=== PATIENT | male | born 1945 | race Caucasian/White ===

== ENCOUNTER 2016-11-30 16:17 | Outpatient (CLI) | payer MEDICARE | END 2016-11-30 16:18 | disposition home or self-care (01) | DX: I83.10 Varicose veins of unspecified lower extremity with inflammation (principal) ==

== ENCOUNTER 2016-12-27 13:30 | Outpatient (CLI) | payer MEDICARE | END 2016-12-27 13:31 | disposition home or self-care (01) | DX: M50.31 Other cervical disc degeneration, high cervical region (principal); M47.812 Spondylosis without myelopathy or radiculopathy, cervical region; M41.24 Other idiopathic scoliosis, thoracic region ==

== ENCOUNTER 2017-02-15 10:10 | Outpatient (CLI) | payer MEDICARE | END 2017-02-15 10:11 | disposition home or self-care (01) | DX: E78.2 Mixed hyperlipidemia (principal) ==

== ENCOUNTER 2017-05-02 03:39 | Emergency (ER) | payer MEDICARE ==
--- NOTE | 2017-05-02 03:42 | ED Physician Documentation ---
PD HPI DYSPNEA - Stated complaint Stated Complaint: SHORTNESS OF BREATH - History obtained from History obtained from: Patient - History of Present Illness Timing - onset: How many minutes ago (45) Timing - onset during: Sleep Timing - details: Abrupt onset Pain level max: 0 Pain level now: 0 Improved by: Other (no apparent ameliorating factors) Worsened by: Other (no exacerbating factors) Associated symptoms: No: Fever, Cough, Chest pain / discomfort, Palpitations, Diaphoresis, Bilateral edema, Unilateral edema Similar symptoms before: Diagnosis (h/o pneumothorax (spontaneous, recurrent until pleurodesis 40 years ago)) Recently seen: Not recently seen Review of Systems Constitutional: denies: Fever, Chills, Sweats Cardiac: reports: Reviewed and negative Respiratory: reports: Dyspnea. denies: Cough, Wheezing GI: reports: Reviewed and negative Musculoskeletal: denies: Extremity swelling PD PAST MEDICAL HISTORY - Past Medical History Past Medical History: Yes Cardiovascular: Hypertension - Present Medications Home Medications: Ambulatory Orders Medication Instructions Recorded Confirmed Losartan [Cozaar] 25 mg PO BID 05/02/17 05/02/17 - Allergies Allergies/Adverse Reactions: Allergies Allergy/AdvReac Type Severity Reaction Status Date / Time Penicillins Allergy Unknown Verified 05/02/17 03:48 - Living Situation Living Situation: reports: With spouse/s.o. Living Arrangement: reports: At home - Social History Does the pt smoke?: No PD ED PE NORMAL - Vitals Vital signs reviewed: Yes - General General: Alert and oriented X 3, No acute distress, Well developed/nourished - Cardiac Cardiac: RRR, No murmur - Respiratory Respiratory: No respiratory distress, Clear bilaterally - Abdomen Abdomen: Soft, Non tender - Derm Derm: Normal color, Warm and dry, No rash - Extremities Extremities: No edema Results - Vitals Vitals: Vital Signs - 24 hr 05/02/17 05/02/17 05/02/17 03:42 04:39 05:03 Temperature 36.2 C L Heart Rate 51 L 54 L 49 L Respiratory 19 17 9 L Rate Blood Pressure 176/82 H 163/83 H 133/78 H O2 Saturation 100 96 96 Oxygen O2 Source Room air - EKG (time done) No standard instances Rate: Rate (enter#) (45) Rhythm: Sinus bradycardia [place]: LAD Intervals: Normal MI QRS: LVH Ischemia: Normal ST segments, T wave inversion (III, aVF) - Labs Labs: Laboratory Tests 05/02/17 05/02/17 05/02/17 04:30 04:30 04:30 WBC 5.0 RBC 4.41 L Hgb 14.1 Hct 40.9 L MCV 92.7 MCH 32.0 H MCHC 34.5 RDW 12.8 Plt Count 186 MPV 8.3 Neut # 3.0 Lymph # 1.5 Caroline # 0.4 Eos # 0.1 Baso # 0.0 Absolute Nucleated RBC 0.00 Nucleated RBCs 0.1 D-Dimer Sodium 139 Potassium 3.8 Chloride 107 Carbon Dioxide 25 Anion Gap 7.0 BUN 30 H Creatinine 1.0 Estimated GFR (MDRD) 74 L Glucose 101 H Calcium 8.8 Troponin I < 0.04 05/02/17 04:30 WBC RBC Hgb Hct MCV MCH MCHC RDW Plt Count MPV Neut # Lymph # Caroline # Eos # Baso # Absolute Nucleated RBC Nucleated RBCs D-Dimer 114.0 L Sodium Potassium Chloride Carbon Dioxide Anion Gap BUN Creatinine Estimated GFR (MDRD) Glucose Calcium Troponin I - Rads (name of study) chest xray Radiology: Prelim report reviewed, See rad report PD MEDICAL DECISION MAKING - ED course Complexity details: reviewed results, re-evaluated patient, considered differential, d/w patient ED course: On reevaluation, after tests resulted, patient reports his symptoms have resolved Departure - Departure Disposition: 01 Home, Self Care Clinical Impression: Dyspnea Qualifiers: Dyspnea type: unspecified Qualified Code(s): R06.00 - Dyspnea, unspecified Condition: Good Instructions: ED Dyspnea Shortness of Breath Follow-Up: Peter Rodriguez MD [Primary Care Provider] - Discharge Date/Time: 05/02/17 05:25
--- NOTE | 2017-05-02 04:16 | XRAY Preliminary Report ---
Exam: XR Chest 2 View PA/LAT IMPRESSION: 1. No acute abnormality seen in the chest. [facility] SITE ID: [id number]
--- NOTE | 2017-05-02 04:18 | XRAY Report ---
EXAM: CHEST RADIOGRAPHY EXAM DATE: 05/02/2017 03:55 AM. CLINICAL HISTORY: Dyspnea. COMPARISON: 07/06/2010. TECHNIQUE: 2 views. FINDINGS: Lungs/Pleura: No alveolar consolidation or pleural effusion. No pneumothorax. Mediastinum: Heart size is normal. Aortic atherosclerosis. Other: Mild scoliosis. IMPRESSION: 1. No acute abnormality seen in the chest. [facility] Referring Provider Line: [phone] SITE ID: [id number]
[2017-05-02 04:44] LABS: BASOPHILS % (AUTO) 0.8 %; EOSINOPHILS # (AUTO) 0.1 10^3/uL (0.0-0.7); EOSINOPHILS % (AUTO) 1.2 %; HCT - HEMATOCRIT 40.9 % (42.0-52.0); HGB - HEMOGLOBIN 14.1 g/dL (14.0-18.0); LYMPHOCYTES # (AUTO) 1.5 10^3/uL (1.5-3.5); MEAN CORPUSCULAR HGB CONC 34.5 g/dL (32.0-36.0); MEAN CORPUSCULAR VOLUME 92.7 fL (80.0-94.0); MEAN PLATELET VOLUME 8.3 fL (7.4-11.4); MONOCYTES # (AUTO) 0.4 10^3/uL (0.0-1.0); MONOCYTES % (AUTO) 8.7 %; NEUTROPHILS % (AUTO) 59.3 %; NUCLEATED RED BLOOD CELLS AUTO 0.1 /100WBC; RED BLOOD COUNT 4.41 10^6/uL (4.70-6.10); RED CELL DISTRIBUTION WIDTH 12.8 % (12.0-15.0)
[2017-05-02 04:47] LABS: CALCIUM 8.8 mg/dL (8.5-10.3); POTASSIUM 3.8 mmol/L (3.5-5.0)
[2017-05-02 05:04] VITALS: BP 133/78
== END 2017-05-02 05:25 | disposition home or self-care (01) ==
LOC: ED 03:39
DX: R06.02 Shortness of breath (principal); I10 Essential (primary) hypertension
CPT/HCPCS: 36415; 71020; 80048; 84484; 85025; 85379; 93005; 99283

== ENCOUNTER 2017-07-09 09:32 | Outpatient (CLI) | payer MEDICARE ==
[2017-07-09 18:52] LABS: CHOL/HDL RATIO 3.9 (<5.0); CHOLESTEROL 196 mg/dL; HDL CHOLESTEROL 50 mg/dL; LDL/HDL RATIO 2.1 (<3.6); TRIGLYCERIDES 215 mg/dL; VLDL CHOLESTEROL 43 mg/dL
== END 2017-07-09 09:33 | disposition home or self-care (01) ==
LOC: LAB.R 09:32
PROVIDERS: ATTEND Internal Medicine
DX: Z12.5 Encounter for screening for malignant neoplasm of prostate (principal); E78.5 Hyperlipidemia, unspecified
CPT/HCPCS: 80061; G0103; 84153

== ENCOUNTER 2018-01-23 08:00 | Outpatient (CLI) | payer MEDICARE ==
[2018-01-23 14:09] LABS: CHOL/HDL RATIO 3.4 (<5.0); CHOLESTEROL 171 mg/dL; HDL CHOLESTEROL 50 mg/dL; LDL CHOLESTEROL,CALCULATED 94 mg/dL; LDL/HDL RATIO 1.9 (<3.6); VLDL CHOLESTEROL 27 mg/dL
== END 2018-01-23 23:59 ==
LOC: LAB.R 08:00
PROVIDERS: ATTEND Internal Medicine
DX: E78.5 Hyperlipidemia, unspecified (principal)
CPT/HCPCS: 80061; 83721

== ENCOUNTER 2018-05-02 10:11 | Outpatient (CLI) | payer MEDICARE ==
--- NOTE | 2018-05-02 10:46 | XRAY Report ---
Procedure Date: 05/02/2018 Accession Number: [id number] / [id number] Procedure: XR - Lumbar Spine 2 View CPT Code: FULL RESULT: EXAM: Lumbar Spine 2 View, Sacrum/Coccyx DATE: 05/02/2018 10:30 AM CLINICAL HISTORY: LUMBAR RADICULOPATHY,RIGHT COMPARISON: None. TECHNIQUE: 2 views of the lumbar spine as well as AP and lateral views of the sacrum and coccyx. FINDINGS: Sacrum/coccyx: The sacroiliac joints are congruent. There is no fracture of the coccyx and no aggressive osseous lesion. Mesh material is seen overlying the pelvis, hernia repair. Visualized soft tissues are unremarkable. Alignment: Normal. No spondylolisthesis or scoliosis. Bones: Six [id number] lumbar vertebral bodies are present. No fractures or bone lesions. Disks: There is loss of disc space height predominantly at L4-5 and L5 6. Facets: Facet arthropathy at L5 and L6. Sacroiliac Joints: Unremarkable. Soft Tissues: Normal. The visualized bowel gas pattern is normal. IMPRESSION: 6 lumbar type vertebral bodies with degenerative changes of the lower lumbar spine as described. [facility]
--- NOTE | 2018-05-02 10:46 | XRAY Report ---
Procedure Date: 05/02/2018 Accession Number: [id number] / [id number] Procedure: XR - Sacrum/Coccyx CPT Code: FULL RESULT: EXAM: Lumbar Spine 2 View, Sacrum/Coccyx DATE: 05/02/2018 10:30 AM CLINICAL HISTORY: LUMBAR RADICULOPATHY,RIGHT COMPARISON: None. TECHNIQUE: 2 views of the lumbar spine as well as AP and lateral views of the sacrum and coccyx. FINDINGS: Sacrum/coccyx: The sacroiliac joints are congruent. There is no fracture of the coccyx and no aggressive osseous lesion. Mesh material is seen overlying the pelvis, hernia repair. Visualized soft tissues are unremarkable. Alignment: Normal. No spondylolisthesis or scoliosis. Bones: Six [id number] lumbar vertebral bodies are present. No fractures or bone lesions. Disks: There is loss of disc space height predominantly at L4-5 and L5 6. Facets: Facet arthropathy at L5 and L6. Sacroiliac Joints: Unremarkable. Soft Tissues: Normal. The visualized bowel gas pattern is normal. IMPRESSION: 6 lumbar type vertebral bodies with degenerative changes of the lower lumbar spine as described. [facility]
== END 2018-05-02 10:12 | disposition home or self-care (01) ==
LOC: DI 10:11
PROVIDERS: ATTEND Physician Assistant Medical
DX: M51.36 Other intervertebral disc degeneration, lumbar region (principal); M47.896 Other spondylosis, lumbar region
CPT/HCPCS: 72100; 72220

== ENCOUNTER 2018-06-14 11:20 | Outpatient (CLI) | payer MEDICARE | END 2018-06-14 11:21 | disposition home or self-care (01) | LOC: DI 11:20 | PROVIDERS: ATTEND Physician Assistant Medical | DX: R94.31 Abnormal electrocardiogram [ECG] [EKG] (principal); R55 Syncope and collapse | CPT/HCPCS: 93306 ==

== ENCOUNTER 2018-07-28 08:00 | Outpatient (CLI) | payer MEDICARE ==
[2018-07-28 14:14] LABS: BASOPHILS % (AUTO) 0.8 %; LYMPHOCYTES # (AUTO) 1.2 10^3/uL (1.5-3.5); MEAN CORPUSCULAR HEMOGLOBIN 32.2 pg (27.0-31.0); MEAN CORPUSCULAR HGB CONC 34.8 g/dL (32.0-36.0); MEAN CORPUSCULAR VOLUME 92.4 fL (80.0-94.0); MONOCYTES # (AUTO) 0.3 10^3/uL (0.0-1.0); MONOCYTES % (AUTO) 8.2 %; NEUTROPHILS # (AUTO) 2.3 10^3/uL (1.5-6.6); PLT - PLATELET COUNT 196 10^3/uL (130-450); RED BLOOD COUNT 4.67 10^6/uL (4.70-6.10); RED CELL DISTRIBUTION WIDTH 13.2 % (12.0-15.0); WHITE BLOOD COUNT 3.8 x10^3/uL (4.8-10.8)
[2018-07-28 14:33] LABS: ALBUMIN/GLOBULIN RATIO 1.4 (1.0-2.2); ALKALINE PHOSPHATASE 57 IU/L (42-121); ALT ALANINE AMINOTRANSFERASE 22 IU/L (10-60); AST ASPARTATE AMINOTRANSFERASE 28 IU/L (10-42); BILIRUBIN,TOTAL 1.2 mg/dL (0.2-1.0); BUN - BLOOD UREA NITROGEN 18 mg/dL (6-20); CARBON DIOXIDE - CO2 28 mmol/L (21-32); CHLORIDE 104 mmol/L (101-111); CHOL/HDL RATIO 3.1 (<5.0); CHOLESTEROL 195 mg/dL; GFR - MDRD 73 (>89); GLUCOSE 89 mg/dL (70-100); HDL CHOLESTEROL 62 mg/dL; LDL CHOLESTEROL,CALCULATED 113 mg/dL; LDL/HDL RATIO 1.8 (<3.6); SODIUM 139 mmol/L (135-145); TOTAL PROTEIN 6.8 g/dL (6.7-8.2); VLDL CHOLESTEROL 20 mg/dL
== END 2018-07-28 08:01 | disposition home or self-care (01) ==
LOC: LAB.R 08:00
PROVIDERS: ATTEND Internal Medicine
DX: E78.5 Hyperlipidemia, unspecified (principal); I10 Essential (primary) hypertension; Z79.899 Other long term (current) drug therapy; Z12.5 Encounter for screening for malignant neoplasm of prostate
CPT/HCPCS: 80053; 80061; 85025; G0103; 83721; 84153

== ENCOUNTER 2019-04-03 10:06 | Outpatient (CLI) | payer MEDICARE ==
--- NOTE | 2019-04-03 17:03 | MRI Report ---
Reason: BURSITIS OF RIGHT SHOULDER Procedure Date: 04/03/2019 Accession Number: [id number] / [id number] Procedure: MRI - Shoulder RT W/O CPT Code: FULL RESULT: EXAM: RIGHT SHOULDER MRI WITHOUT CONTRAST EXAM DATE: 04/03/2019 11:07 AM. CLINICAL HISTORY: Bursitis of right shoulder. COMPARISON: None. TECHNIQUE: Multiplanar, multisequence T1-weighted and fluid-sensitive sequences of the shoulder without contrast. Other: None. FINDINGS: Acromioclavicular Region: The acromion is type II. Moderate osteoarthritis acromioclavicular joint. Cortical erosion and subcortical cystic changes distal clavicle and acromion at the AC joint. Small joint fluid. Superior AC joint capsular hypertrophy and spurring 7 mm. Inferior distal clavicle 3 mm spurring. Negative for marrow edema AC joint. The coracoacromial and coracoclavicular ligaments are intact. Small fluid collection subacromial subdeltoid bursa. Glenohumeral Region: No subluxation. No effusion or loose bodies. The articular cartilage is unremarkable. The glenohumeral ligaments and joint capsule are unremarkable. Bone Marrow: No fracture, marrow edema or bone lesions. Labrum: Probable superior labrum tear or SLAP lesion. Altered morphology anterior labrum with probable tear (image 15 series 401). Musculature/Rotator Cuff: At the 12 o'clock position humerus head is a bursal surface supraspinatus partial tear 50% thickness 1.6 cm in AP dimension and 1.6 cm in transverse dimension (image 12 series 701 and image 10 series 501). Complete or near complete partial tear distal anterior supraspinatus tendon 1.5 cm in AP dimension and 9 mm in transverse dimension. Negative for fluid signal subscapularis tendon tear. Negative for fluid signal infraspinatus tendon tear. Intermediate signal undersurface distal infraspinatus tendon 8 mm consistent with focal tendinosis. Biceps Tendon: Proximal intra-articular biceps tendinosis with enlargement and intermediate signal. Probable biceps zbigniew lesion. Attenuation biceps tendon proximal bicipital groove. Other: The subcutaneous tissues are unremarkable. IMPRESSION: 1. Near complete and/or complete tear distal anterior supraspinatus tendon 1.5 cm in AP dimension and 9 mm in transverse dimension. 2. Partial bursal surface tear 50% proximal supraspinatus tendon 12 o'clock position humerus head 1.6 cm in transverse dimension and 1.6 cm in AP dimension. 3. Small fluid collection subacromial subdeltoid bursa. 4. Moderate osteoarthritis acromioclavicular joint. 5. Probable superior and anterior glenoid labrum tear. 6. Proximal intra-articular biceps tendinosis. [facility]
== END 2019-04-03 10:07 | disposition home or self-care (01) ==
LOC: DI 10:06
PROVIDERS: ATTEND Orthopaedic Surgery Sports Medicine
DX: M75.101 Unspecified rotator cuff tear or rupture of right shoulder, not specified as traumatic (principal); M19.011 Primary osteoarthritis, right shoulder; M25.411 Effusion, right shoulder; M67.921 Unspecified disorder of synovium and tendon, right upper arm

== ENCOUNTER 2019-07-14 11:54 | Outpatient (CLI) | payer MEDICARE ==
--- NOTE | 2019-07-14 16:02 | XRAY Report ---
Reason: NON TRAUMATIC PARTIAL LEFT ROTATOR CUFF TEAR Procedure Date: 07/14/2019 Accession Number: [id number] / [id number] Procedure: XR - Shoulder 3 View LT CPT Code: FULL RESULT: EXAM: LEFT SHOULDER RADIOGRAPHY EXAM DATE: 07/14/2019 12:10 PM. CLINICAL HISTORY: Nontraumatic partial left rotator cuff tear. COMPARISON: MRI SHOULDER RT W/O 04/03/2019. TECHNIQUE: 3 views. FINDINGS: Bones: No acute abnormality. No fracture or dislocation. Severe left AC joint arthropathy with superior subluxation of the acromion. The glenohumeral joint is unremarkable. Joints: As above. Soft tissues: The visualized hemithorax is unremarkable. No soft tissue swelling. No soft tissue calcifications. IMPRESSION: 1. No acute abnormality. 2. Severe left AC joint arthropathy as described above. 3. Otherwise negative examination. No evidence of soft tissue calcification. [facility]
== END 2019-07-14 11:55 | disposition home or self-care (01) ==
LOC: DI 11:54
PROVIDERS: ATTEND Family Medicine
DX: M75.112 Incomplete rotator cuff tear or rupture of left shoulder, not specified as traumatic (principal); M19.012 Primary osteoarthritis, left shoulder

== ENCOUNTER 2019-07-29 10:27 | Outpatient (CLI) | payer MEDICARE ==
[2019-07-29] MEDS ORDERED: IOTHALAMATE MEGLUMINE 50 ML VIAL ONE (10:34)
[2019-07-29] MEDS ORDERED: BUFFERED LIDOCAINE 10 ML SYRINGE ONE (10:35)
[2019-07-29] MEDS ORDERED: GADOBUTROL 10 MMOL/10 ML VIAL ONE (10:35)
[2019-07-29] MEDS ORDERED: BUFFERED LIDOCAINE 10 ML SYRINGE IU ONE (11:35)
[2019-07-29] MEDS ORDERED: GADOBUTROL 10 MMOL/10 ML VIAL IVP ONE (11:35)
[2019-07-29] MEDS ORDERED: IOTHALAMATE MEGLUMINE 50 ML VIAL IVP ONE (11:35)
--- NOTE | 2019-07-30 11:55 | MRI Report ---
Reason: PARTIAL LEFT ROTATOR CUFF TEAR Procedure Date: 07/29/2019 Accession Number: [id number] / [id number] Procedure: MRI - Arthrogram Shoulder LT CPT Code: FULL RESULT: EXAM: LEFT SHOULDER MRI ARTHROGRAM WITH CONTRAST EXAM DATE: 07/29/2019 12:00 PM. CLINICAL HISTORY: Partial left rotator cuff tear. COMPARISON: Radiographs 07/14/2019. TECHNIQUE: Multiplanar, multisequence T1-weighted and fluid-sensitive sequences of the shoulder after an arthrographic injection of dilute gadolinium, dictated under a separate exam. Other: None. FINDINGS: Acromioclavicular Region: The acromion is type II with subtle anterior downsloping. Moderate degenerative change at the acromioclavicular joint with inferiorly-directed osteophytes and a large joint effusion. Subtle contrast may extend into the joint. The coracoacromial and coracoclavicular ligaments are intact. Small amount of contrast in the subacromial/subdeltoid bursa. Glenohumeral Region: No subluxation. No loose bodies. Deep partial-thickness cartilage loss at the central articular surfaces. The glenohumeral ligaments and joint capsule are unremarkable. Bone Marrow: No fracture, marrow edema or bone lesions. Labrum: Undersurface tear at the posterior-superior aspect. Deep partial to full-thickness component deep to the biceps anchor. Biceps Tendon: Mild tendinopathy with medial subluxation from the superior aspect of the bicipital groove. Musculature/Rotator Cuff: Mild supraspinatus tendinopathy. Focal full-thickness partial-width tear at the anterior insertion. Mild infraspinatus tendinopathy. Subtle shallow intrasubstance tear at the posterior insertion. Teres minor tendon intact. Moderate subscapularis tendinopathy with a small deep partial-thickness undersurface tear at the superior insertion. No edema or fatty atrophy. Other: The subcutaneous tissues are unremarkable. IMPRESSION: 1. Mild supraspinatus tendinopathy with a focal full-thickness partial-width tear at the anterior insertion. 2. Mild infraspinatus tendinopathy with a subtle shallow intrasubstance tear at the posterior fibers. 3. Moderate subscapularis tendinopathy with a small deep undersurface tear at the superior insertion. 4. Mild biceps tendinopathy with medial subluxation from the groove. 5. Undersurface tear at the posterior-superior labrum. Deep partial to full-thickness extension deep to the biceps anchor. 6. Moderate acromioclavicular degenerative change with joint effusion. Possible subtle contrast in the joint fluid, suggestive of inferior capsular disruption. 7. Subtle anterior downsloping of the acromion may contribute to symptoms of impingement. [facility]
--- NOTE | 2019-07-31 12:02 | XRAY Report ---
Reason: PARTIAL LEFT ROTATOR CUFF TEAR Procedure Date: 07/29/2019 Accession Number: [id number] / [id number] Procedure: FL - Arthrogram Needle Placement CPT Code: FULL RESULT: EXAM: LEFT SHOULDER ARTHROGRAPHIC INJECTION WITH FLUOROSCOPIC GUIDANCE EXAM DATE: 07/29/2019 11:29 AM. CLINICAL HISTORY: Partial left rotator cuff tear. COMPARISON: ARTHROGRAM SHOULDER LT 07/29/2019 10:56 AM. TECHNIQUE: The risks, benefits, and alternatives of the procedure were discussed with the patient. All questions were answered. Written and verbal consent were obtained. The glenohumeral joint was marked under fluoroscopy and prepped and draped in a sterile manner. Local anesthesia was performed with 1% lidocaine. A 22-gauge needle was then inserted into the glenohumeral joint. 10 mL of a solution containing 25% 1% lidocaine, 25% iodinated contrast, and a 1:200 dilution of gadolinium contrast in sterile saline was then injected. The needle was removed without immediate complication. Other: None. Fluoroscopy Time: 2 seconds. Number of Images: 6. FINDINGS: Bones and joints: No fracture or subluxation. Injection: Fluoroscopic images demonstrate needle placement and contrast in the glenohumeral joint. No contrast extravasation outside of the glenohumeral joint. IMPRESSION: Successful fluoroscopically guided arthrographic injection of the shoulder. [facility]
== END 2019-07-29 10:28 | disposition home or self-care (01) ==
LOC: DI 10:27
PROVIDERS: ATTEND Family Medicine
DX: M75.102 Unspecified rotator cuff tear or rupture of left shoulder, not specified as traumatic (principal); M67.814 Other specified disorders of tendon, left shoulder; S43.492A Other sprain of left shoulder joint, initial encounter; M19.012 Primary osteoarthritis, left shoulder; M25.412 Effusion, left shoulder
CPT/HCPCS: 23350; 73222; 77002; A9585; Q9961

== ENCOUNTER 2019-08-14 08:21 | Outpatient (CLI) | payer MEDICARE ==
[2019-08-14 08:43] LABS: BASOPHILS # (AUTO) 0.1 10^3/uL (0.0-0.1); EOSINOPHILS # (AUTO) 0.1 10^3/uL (0.0-0.7); EOSINOPHILS % (AUTO) 1.8 %; HGB - HEMOGLOBIN 14.5 g/dL (14.0-18.0); LYMPHOCYTES % (AUTO) 39.6 %; MEAN CORPUSCULAR HEMOGLOBIN 32.1 pg (27.0-31.0); MEAN CORPUSCULAR HGB CONC 34.5 g/dL (32.0-36.0); MEAN CORPUSCULAR VOLUME 92.9 fL (80.0-94.0); MEAN PLATELET VOLUME 9.6 fL (7.4-11.4); MONOCYTES # (AUTO) 0.4 10^3/uL (0.0-1.0); MONOCYTES % (AUTO) 8.2 %; NEUTROPHILS # (AUTO) 2.5 10^3/uL (1.5-6.6); NEUTROPHILS % (AUTO) 49.2 %; PLT - PLATELET COUNT 189 10^3/uL (130-450); RED BLOOD COUNT 4.52 10^6/uL (4.70-6.10); RED CELL DISTRIBUTION WIDTH 12.6 % (12.0-15.0)
[2019-08-14 09:10] LABS: ALBUMIN 4.1 g/dL (3.2-5.5); ALBUMIN/GLOBULIN RATIO 1.7 (1.0-2.2); ALKALINE PHOSPHATASE 50 IU/L (42-121); ALT ALANINE AMINOTRANSFERASE 20 IU/L (10-60); AST ASPARTATE AMINOTRANSFERASE 24 IU/L (10-42); BILIRUBIN,TOTAL 1.3 mg/dL (0.2-1.0); BUN - BLOOD UREA NITROGEN 25 mg/dL (6-20); CALCIUM 9.4 mg/dL (8.5-10.3); CARBON DIOXIDE - CO2 28 mmol/L (21-32); CHLORIDE 108 mmol/L (101-111); CHOL/HDL RATIO 3.1 (<5.0); CHOLESTEROL 185 mg/dL; CREATININE 1.1 mg/dL (0.6-1.2); GFR - MDRD 66 (>89); GLUCOSE 99 mg/dL (70-100); HDL CHOLESTEROL 59 mg/dL; LDL CHOLESTEROL,CALCULATED 100 mg/dL; LDL/HDL RATIO 1.7 (<3.6); SODIUM 142 mmol/L (135-145); TOTAL PROTEIN 6.5 g/dL (6.7-8.2); VLDL CHOLESTEROL 26 mg/dL
[2019-08-14 10:21] LABS: FREE T4 (FREE THYROXINE) 0.85 ng/dL (0.58-1.64)
== END 2019-08-14 08:22 | disposition home or self-care (01) ==
LOC: LAB 08:21
PROVIDERS: ATTEND Family Medicine
DX: M54.16 Radiculopathy, lumbar region (principal); M17.9 Osteoarthritis of knee, unspecified; E78.5 Hyperlipidemia, unspecified; I10 Essential (primary) hypertension
CPT/HCPCS: 36415; 80053; 80061; 83721; 84439; 84443; 85025

== ENCOUNTER 2019-10-20 17:29 | Outpatient (CLI) | payer MEDICARE ==
[2019-10-20 17:49] LABS: BASOPHILS % (AUTO) 0.6 %; EOSINOPHILS % (AUTO) 0.5 %; HGB - HEMOGLOBIN 14.6 g/dL (14.0-18.0); LYMPHOCYTES # (AUTO) 1.7 10^3/uL (1.5-3.5); LYMPHOCYTES % (AUTO) 26.3 %; MEAN CORPUSCULAR HEMOGLOBIN 32.5 pg (27.0-31.0); MEAN CORPUSCULAR HGB CONC 34.8 g/dL (32.0-36.0); MEAN CORPUSCULAR VOLUME 93.5 fL (80.0-94.0); MEAN PLATELET VOLUME 9.7 fL (7.4-11.4); MONOCYTES # (AUTO) 0.5 10^3/uL (0.0-1.0); MONOCYTES % (AUTO) 7.8 %; NEUTROPHILS # (AUTO) 4.1 10^3/uL (1.5-6.6); NEUTROPHILS % (AUTO) 64.6 %; PLT - PLATELET COUNT 221 10^3/uL (130-450); RED BLOOD COUNT 4.49 10^6/uL (4.70-6.10); RED CELL DISTRIBUTION WIDTH 12.5 % (12.0-15.0); WHITE BLOOD COUNT 6.4 x10^3/uL (4.8-10.8)
[2019-10-20 17:54] LABS: CALCIUM 9.3 mg/dL (8.5-10.3); CREATININE 1.6 mg/dL (0.6-1.2)
== END 2019-10-20 17:30 | disposition home or self-care (01) ==
LOC: LAB 17:29
PROVIDERS: ATTEND Family Medicine
DX: Z01.810 Encounter for preprocedural cardiovascular examination (principal)
CPT/HCPCS: 80048; 85025

== ENCOUNTER 2019-10-28 06:21 | Day surgery (SDC) | payer MEDICARE ==
--- NOTE | 2019-10-26 08:49 | CONSULTATION NOTE ---
Consultation Report: Reviewed this patient previous cardiology records. It appears that patient is active plays tennis.He has not had any cardiac events other than syncope. There are no reports of him c/o any chest pain or chest pressure or SOB at rest or with activity. Patient has reported vasovagal events 4-5 times in past 10 years. EKG shows sinus rhythm/ sinus bradycardia with occasional PVC's. His most recent ECHO from 12/18/18 shows his EF of 55-60%. There is no valve dysfunction of ventricular dysfunction as per this ECHO. He has been cleared for surgery by his PCP Dr. Aguero. It is reported in patient's health records that he has experienced delayed emergence from previous anesthetics. His vital signs have been stable and he has been told by his PCP to continue his anti hypertensive medication. We will go ahead with the scheduled surgery.
[2019-10-28] MEDS ORDERED: CEFAZOLIN SODIUM IN 0.9 % NACL 2 GM/100 ML BAG IV ONE (06:34)
[2019-10-28] MEDS ORDERED: LACTATED RINGERS 1,000 ML IV ONE ×2 (06:36→10:35)
[2019-10-28] MEDS ORDERED: ROPIVACAINE 0.5% PF 20 ML AMPULE ONE (07:01)
--- NOTE | 2019-10-28 07:14 | ANESTHESIA ---
Pre-Anesthesia VS, & Labs - Diagnosis left shoulder rotator cuff tear, long head biceps subluxation, subacromial impingement, bursitis - Procedure Left shoulder arthroscopic vs open rotator cuff repair with subacromial decompression, arthroscopic vs open long head biceps tenodesis Vital Signs: Temp Pulse Resp BP Pulse Ox 36.6 C 54 L 16 164/90 H 100 10/28/19 06:42 10/28/19 06:42 10/28/19 06:42 10/28/19 06:42 10/28/19 06:42 Height 5 ft 11 in Weight (kg) 82.4 kg Body Mass Index 24.7 - NPO >8 hours Home Medications and Allergies Home Medications: Ambulatory Orders Hydrocodone/Acetaminophen [Hydrocodon-Acetaminophn 10-325] 1 each PO QPM 10/23/19 Red Yeast Rice 600 mg PO DAILY 10/23/19 Losartan [Cozaar] 25 mg PO BID 05/02/17 Hydrocodone/Acetaminophen [Hydrocodon-Acetaminophn 10-325] 1 each PO QPM 10/23/19 Red Yeast Rice 600 mg PO DAILY 10/23/19 Allergies/Adverse Reactions: Allergies Allergy/AdvReac Type Severity Reaction Status Date / Time lisinopril Allergy Itching Verified 10/28/19 07:01 Penicillins Allergy Itching Verified 10/28/19 07:01 bromine Allergy Itching Uncoded 10/28/19 07:01 Anes History & Medical History - Medical History Cardiovascular: reports: Hypertension, High cholesterol, Arrhythmia (vaso-vagel) Pulmonary: reports: Other (History of spontaneous pneumothorax) Gastrointestinal: reports: None Urinary: reports: None Neuro: reports: None Musculoskeletal: reports: None Endocrine/Autoimmune: reports: None Blood Disorders: reports: None Skin: reports: Other Smoking Status: Former smoker (Quit 40 years ago) Psychosocial: reports: Alcohol (Daily shot of whiskey daily) - Surgical History General: Colonoscopy, Other (shiraz inguinal hernia repair) Eyes Ears Nose Throat (EENT): Cataracts Cardiothoracic: Other Orthopedic: Arthroscopic surgery, Other Dermatologic: Skin cancer surgery Results - EKG Results EKG Comparison: Reviewed EKG - Echo Results Echo Results: Report reviewed, Other (mild EF impairment, 45-50%) Exam General: Alert, Oriented x3, Cooperative, No acute distress Dental: WNL Mouth Openin Fingerbreadth Neck Mobility: Normal Mallampati classification: I Thyromental Distance: greater than 6 cm Respiratory: Lungs clear, Normal breath sounds, No respiratory distress, No accessory muscle use Cardiovascular: Regular rate, Normal S1, Normal S2, No murmurs Mental/Cognitive Status: Alert/Oriented X3, Normal for patient Plan Anesthesia Type: General, Interscalene Block (Left) Consent for Procedure(s) Verified and Reviewed: Yes Code Status: Attempt Resuscitation ASA classification: 2-Mild systemic disease Is this case an emergency?: No
[2019-10-28] MEDS ORDERED: BUPIVACAINE 0.25% PF 30 ML VIAL ONE (07:28)
[2019-10-28] MEDS ORDERED: EPINEPHrine 1 MG/ML AMP ONE (07:29)
[2019-10-28] MEDS ORDERED: ONDANSETRON 4 MG/2 ML VIAL IVP ONE (07:45)
[2019-10-28] MEDS ORDERED: PROPOFOL 200 MG/20 ML VIAL IVP ONE (07:45)
[2019-10-28] MEDS ORDERED: ROCURONIUM 50 MG/5 ML VIAL IVP ONE (07:45)
[2019-10-28] MEDS ORDERED: LIDOCAINE-MPF 2% 5 ML VIAL IM ONE (07:45)
[2019-10-28] MEDS ORDERED: ACETAMINOPHEN 1,000 MG/100 ML 100 ML IV ONE (07:45)
[2019-10-28] MEDS ORDERED: DEXAMETHASONE 4 MG/ML VIAL IVP ONE (07:45)
[2019-10-28] MEDS ORDERED: fentaNYL 100 MCG/2 ML VIAL IVP ONE (07:45)
[2019-10-28] MEDS ORDERED: NEOSTIGMINE 1 MG/1 ML 10 ML MDV IVP ONE (07:45)
[2019-10-28] MEDS ORDERED: ePHEDrine 50 MG/ML VIAL IVP ONE (07:45)
[2019-10-28] MEDS ORDERED: MIDAZOLAM 2 MG/2 ML VIAL IVP ONE (07:45)
[2019-10-28] MEDS ORDERED: BUPIVACAINE 0.25% PF 30 ML VIAL SUBQ ONE (08:33)
[2019-10-28] MEDS ORDERED: ONDANSETRON 4 MG/2 ML VIAL IVP PRN (10:34)
[2019-10-28] MEDS ORDERED: oxyCODONE 5 MG TABLET PO PRN (10:34)
--- NOTE | 2019-10-28 10:39 | IMMEDIATE POSTOPERATIVE NOTE ---
Immediate Postoperative Note - Procedure Note Procedure Date: 10/28/19 Pre-Op Diagnosis: Left rct , subacromial impingement/bursitis, long head biceps inj Procedure: Arthroscopic left shoulder subacromial decompression, rotator cuff repair, long head biceps tenodesis Post-Op Diagnosis: Same Fashion Stylist: None Anesthesia Type: General ET tube, Local, Regional block Findings: As above Complications: No complications Estimated Blood Loss (in cc): 25 Drains, Catheters, Devices: None Specimens and Cultures: None Plan of Care: Patient tolerated procedure well instrument and sponge counts correct patient transferred to recovery room in stable condition. Patient will follow standard postoperative left shoulder rotator cuff repair and biceps tenodesis protocol
[2019-10-28 12:26] VITALS: BP 135/64
--- NOTE | 2019-10-30 09:26 | OPERATIVE REPORT ---
DATE OF SERVICE: 10/28/2019 Physician: Yann Durant MD SURGEON: Yann Durant MD RESEARCH TEST ENGINE OPERATOR: None. ANESTHESIA PROVIDER: Lazaro Morrell. ANESTHESIA TYPE: General anesthesia as well as 30 mL of 0.25% plain Marcaine. ESTIMATED BLOOD LOSS: 25 mL FLUIDS: Lactated Ringer's 700 mL. ANESTHESIA: General endotracheal anesthesia. PREOPERATIVE ANTIBIOTICS: Weight-based IV Ancef. COMPRESSION DEVICE: Bilateral calf SCD boots. ORTHOPEDIC IMPLANTS: 8 x 19 Arthrex PushLock as well as Arthrex 5 mm BioComposite triple play anchor s x2. PREOPERATIVE DIAGNOSES 1. Left shoulder full-thickness rotator cuff tear. 2. Left shoulder subacromial impingement/bursitis. 3. Left shoulder long head biceps subluxation. POSTOPERATIVE DIAGNOSES 1. Left shoulder full-thickness rotator cuff tear. 2. Left shoulder subacromial impingement/bursitis. 3. Left shoulder long head biceps subluxation. PROCEDURES PERFORMED 1. Left shoulder arthroscopic subacromial decompression conversion to type 1 acromion. 2. Left shoulder arthroscopic rotator cuff repair of supraspinatus. 3. Left shoulder arthroscopic long head biceps tenodesis. HISTORY OF PRESENT ILLNESS: Patient is a 74-year-old gentleman who has had longstanding rotator cuff injury. He is previously indicated for operative treatment. Risks, benefits, and alternatives were discussed at length in clinic visit reiterated in the preoperative area. Patient's questions were a nswered, as were those of his . Patient verbalized understanding of the above and verbalized wis h to proceed with operative treatment. Informed consent was given. INTRAOPERATIVE FINDINGS: Patient noted to have full-thickness rotator cuff tear, anterior supraspina tus with subluxation of the long head biceps and subscapularis generally intact with minimal fraying at the superior aspect. The remainder of the rotator cuff okay. There is downsloping on the anterio r aspect of the acromion with subacromial bursitis converted to type 1 and then the biceps was noted to be well fixed in the biceps groove with good fixation of the rotator cuff to its near anatomic david tprint. DESCRIPTION OF PROCEDURE: On 10/28/2019, patient was identified in the preoperative care unit and id entifies his left shoulder as the operative site. This is signed by the operating surgeon. Patient received preoperative weight-based IV antibiotics. He is brought to the operating room. At this poin t, general anesthesia is administered. Patient is placed gently supine on his contralateral right si de down with appropriately placed axillary roll to avoid encumbrance of the axilla and down leg is ge l padded. SCD boots were in place. Patient is placed in anatomically comfortable and safe position to avoid peripheral nerve stretch and compression. At this point, patient's left upper extremity is pre-scrubbed with Hibiclens solution and then alcohol, and then prepped and draped with ChloraPrep un aissatou aseptic conditions. At this point, surgical pause identifies left shoulder as the operative site . Local anesthetic is used anterior and posterolaterally. Scope is introduced into the joint in a p osterior position. Diagnostic arthroscopy is carried out. Please see operative findings. At this p oint, an anterior incision is created at which point, the biceps is tagged using a PDS suture. The b iceps is released from the superior aspect of the labrum as it is subluxed far out of the bicipital g roove and then the superior labrum is gently debrided and no further indication for other treatment. There is minimal chondromalacia grade 1-2 of the glenohumeral joint. No loose bodies appreciated. At this point, attention directed to the subacromial space. Lateral incision is made. Arthroscopic shaver is introduced there and subacromial decompression commenced to remove fibrotic tissue as well as bursa and convert the acromion to a type 1 using a 6 mm oval bur. At this point, the rotator cuff is identified and debrided at its edge with a large meniscal basket. The footprint is debrided usin g a shaver and bur to gently bleeding bone, but maintaining integrity of the cortex. Long head bicep s is identified and pulled out through an anterolateral auxiliary incision. A small amount is remove d such that ultimately the length would remain appropriate once placed into a socket at the superior aspect of the bicipital groove. At this point, a #2 FiberWire is whip stitched into the long head bi ceps and a guide pin is brought to the superior aspect of the bicipital groove. The socket is drille d equal to the long head biceps size and then the biceps is pushed into this socket and then fixed us ing a PushLock device, which seats nicely and has excellent compression fixation. The ends of the barnett ture are then tied and the biceps is noted to be well fixed in the superior aspect of the groove. Attention is directed towards fixation of the rotator cuff with sequential anterior and posterior tri ple-loaded anchors placed, followed by a combination of 5 simple sutures and a single posterior horiz ontal mattress suture, which is thereby tied sequentially, reopposing the rotator cuff to its near, f ootprint. These are tied, suture limbs were cut and the rotator cuff is nicely opposed with no signi ficant lifting or dog ear appearance. At this point, the subacromial space is copiously irrigated an d hemostasis achieved. Instruments are removed and the incisions are closed using interrupted nylon suture. Local anesthesia is infused around the incisions. Skin is washed and dried. Xeroform dress ing is applied. Dry sterile dressings applied. Patient is placed in abduction sling with pillow. Patient tolerated the procedure well. Instrument and sponge counts are correct. Patient will be on perioperative antibiotics and given oral analgesics and advised to be on a bowel regimen medication o [id number] with followup in 10-14 days. He will follow standard postoperative left shoulder rot ator cuff and biceps tenodesis protocol. Attempts were made to find patient's postoperatively and call, unsuccessful though instructions again reiterated with patient prior to discharge as they had been with patient and patient's pre operatively. He will follow up in 10-14 days or sooner as needed. TD: 10/30/2019 06:24
== END 2019-10-28 06:22 | disposition home or self-care (01) ==
LOC: SDS 06:21
PROVIDERS: ATTEND Orthopaedic Surgery Sports Medicine
PROC: 0RHK44Z Insertion of Internal Fixation Device into Left Shoulder Joint, Percutaneous Endoscopic Approach (ICD-10-PCS; 2019-10-28)
PROC: 0LS24ZZ Reposition Left Shoulder Tendon, Percutaneous Endoscopic Approach (ICD-10-PCS; 2019-10-28)
PROC: 0RHK44Z Insertion of Internal Fixation Device into Left Shoulder Joint, Percutaneous Endoscopic Approach (ICD-10-PCS; 2019-10-28)
PROC: 0RNK4ZZ Release Left Shoulder Joint, Percutaneous Endoscopic Approach (ICD-10-PCS; 2019-10-28)
PROC: 0LM24ZZ Reattachment of Left Shoulder Tendon, Percutaneous Endoscopic Approach (ICD-10-PCS; principal; 2019-10-28 07:30)
DX: M75.122 Complete rotator cuff tear or rupture of left shoulder, not specified as traumatic (principal); M75.42 Impingement syndrome of left shoulder; S46.112A Strain of muscle, fascia and tendon of long head of biceps, left arm, initial encounter; M75.52 Bursitis of left shoulder; I10 Essential (primary) hypertension; E78.00 Pure hypercholesterolemia, unspecified; I49.9 Cardiac arrhythmia, unspecified; Z87.891 Personal history of nicotine dependence; X58.XXXA Exposure to other specified factors, initial encounter
CPT/HCPCS: 29826; 29827; 29828; C1713; J0131; J0690; J7120

== ENCOUNTER 2020-07-07 10:24 | Outpatient (CLI) | payer MEDICARE ==
[2020-07-07 10:46] LABS: BASOPHILS % (AUTO) 0.7 %; EOSINOPHILS # (AUTO) 0.1 10^3/uL (0.0-0.7); EOSINOPHILS % (AUTO) 1.1 %; HGB - HEMOGLOBIN 14.7 g/dL (14.0-18.0); LYMPHOCYTES # (AUTO) 1.6 10^3/uL (1.5-3.5); LYMPHOCYTES % (AUTO) 36.6 %; MEAN CORPUSCULAR HEMOGLOBIN 32.2 pg (27.0-31.0); MEAN CORPUSCULAR HGB CONC 34.3 g/dL (32.0-36.0); MEAN CORPUSCULAR VOLUME 94.1 fL (80.0-94.0); MEAN PLATELET VOLUME 10.2 fL (7.4-11.4); MONOCYTES # (AUTO) 0.4 10^3/uL (0.0-1.0); MONOCYTES % (AUTO) 9.2 %; NEUTROPHILS # (AUTO) 2.3 10^3/uL (1.5-6.6); NEUTROPHILS % (AUTO) 52.2 %; PLT - PLATELET COUNT 207 10^3/uL (130-450); RED BLOOD COUNT 4.56 10^6/uL (4.70-6.10); RED CELL DISTRIBUTION WIDTH 12.7 % (12.0-15.0); WHITE BLOOD COUNT 4.4 x10^3/uL (4.8-10.8)
[2020-07-07 10:58] LABS: ALBUMIN 4.2 g/dL (3.2-5.5); ALBUMIN/GLOBULIN RATIO 1.7 (1.0-2.2); ALKALINE PHOSPHATASE 58 IU/L (42-121); ALT ALANINE AMINOTRANSFERASE 20 IU/L (10-60); AST ASPARTATE AMINOTRANSFERASE 26 IU/L (10-42); BILIRUBIN,TOTAL 0.8 mg/dL (0.2-1.0); BUN - BLOOD UREA NITROGEN 21 mg/dL (6-20); CALCIUM 9.3 mg/dL (8.5-10.3); CARBON DIOXIDE - CO2 28 mmol/L (21-32); CHLORIDE 106 mmol/L (101-111); CHOL/HDL RATIO 3.1 (<5.0); CHOLESTEROL 188 mg/dL; GLUCOSE 99 mg/dL (70-100); HDL CHOLESTEROL 60 mg/dL; LDL CHOLESTEROL,CALCULATED 106 mg/dL; LDL/HDL RATIO 1.8 (<3.6); SODIUM 140 mmol/L (135-145); TOTAL PROTEIN 6.7 g/dL (6.7-8.2); VLDL CHOLESTEROL 22 mg/dL
== END 2020-07-07 10:25 | disposition home or self-care (01) ==
LOC: LAB 10:24
PROVIDERS: ATTEND Nurse Practitioner Family
DX: Z00.00 Encounter for general adult medical examination without abnormal findings (principal); I10 Essential (primary) hypertension; E78.5 Hyperlipidemia, unspecified
CPT/HCPCS: 36415; 80053; 80061; 83721; 84443; 85025

== ENCOUNTER 2020-07-15 10:19 | Outpatient (CLI) | payer MEDICARE ==
--- NOTE | 2020-07-15 12:03 | MRI Report ---
PROCEDURE: Knee LT W/O INDICATIONS: LT KNEE JOINT PAIN TECHNIQUE: Noncontrast sagittal PD fast spin echo and T2 fast spin echo with fat saturation, sagittal 3-D gradie nt sequence with fat saturation; coronal T1 spin echo and PD fast spin echo with fat saturation, and axial PD fast spin echo with fat saturation through the knee. COMPARISON: Left knee radiographs dated 04/27/2019 FINDINGS: Image quality: Excellent. Menisci: There is a horizontal oblique tear posterior horn and body of the medial meniscus extending to the inner third of the femoral articular surface. A lobulated cyst is seen posterior to the poste rior horn of the medial meniscus extending into the intercondylar notch that may represent a parameni scal cyst or ganglion cyst. The lateral meniscus is intact. There is no meniscal extrusion. Cruciate ligaments: There is thickening and increased signal in the posterior cruciate ligament comp atible with moderate intrasubstance degeneration. The anterior cruciate ligament is intact. Medial structures: The medial collateral ligament appears intact. The semimembranosus tendon insert ions appear intact. Visualized portions of the pes anserinus tendons appear normal. Lateral structures: Increased signal is seen at the proximal lateral collateral ligament origin, com patible with a prior sprain. The popliteus tendon demonstrates mild insertional tendinosis. Iliotib ial band appears normal. Anterior structures: The quadriceps and patellar tendons appear intact. Patellar alignment is gwendolyn l. No femoral trochlear dysplasia or ventral trochlear prominence. Nonspecific edema is seen at the superolateral aspect of Hoffa's fat pad without additional signs of Hoffa's fat pad impingement syndr ome. Bones and cartilage: No bone marrow contusion or acute fracture. There is moderate grade partial th ickness cartilage thinning in the central weightbearing portion of the medial femorotibial compartmen t with small marginal osteophyte formation. Focal subchondral irregularity is seen in the central por tion of the lateral femoral condyle without surrounding edema, which is nonspecific and may be congen ital or related to prior trauma. Small lateral marginal osteophytes are present. Large areas of full- thickness cartilage loss is seen in the anterior compartment involving the trochlear and patellar art icular cartilages with subchondral cystic changes and edema as well as marginal osteophyte formation. Joint space and soft tissues: There is a small joint effusion with mild synovial hypertrophy. A smal l medial popliteal cyst is present. Small lobular ganglion cyst is seen adjacent to the origins of t he medial and lateral heads of the gastrocnemius muscle. IMPRESSION: 1. Horizontal oblique tear of the posterior horn and body of the medial meniscus extending to the in ner third of the femoral articular surface. A lobulated cyst posterior to the medial meniscus extendi ng into the intercondylar notch may represent a parameniscal cyst or ganglion cyst. 2. Moderate intrasubstance degeneration of the posterior cruciate ligament. Mild chronic tendinosis of the proximal lateral collateral ligament. 3. 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 Tricompartmental ma rginal osteophytes are present. 4. Small joint effusion. Small medial tibial cyst. Reviewed by: Joselito Mcintyre MD on 07/15/2020 12:02 PM PDT Approved by: Joselito Mcintyre MD on 07/15/2020 12:02 PM PDT Station ID: [id number]
== END 2020-07-15 10:20 | disposition home or self-care (01) ==
LOC: DI 10:19
PROVIDERS: ATTEND Family Medicine
DX: S83.242A Other tear of medial meniscus, current injury, left knee, initial encounter (principal); M17.12 Unilateral primary osteoarthritis, left knee; M85.662 Other cyst of bone, left lower leg

== ENCOUNTER 2020-10-31 09:22 | Outpatient (CLI) | payer MEDICARE ==
[2020-10-31 09:37] LABS: BASOPHILS % (AUTO) 0.8 %; EOSINOPHILS # (AUTO) 0.1 10^3/uL (0.0-0.7); HGB - HEMOGLOBIN 14.7 g/dL (14.0-18.0); LYMPHOCYTES # (AUTO) 2.3 10^3/uL (1.5-3.5); LYMPHOCYTES % (AUTO) 45.1 %; MEAN CORPUSCULAR HEMOGLOBIN 31.8 pg (27.0-31.0); MEAN CORPUSCULAR HGB CONC 33.1 g/dL (32.0-36.0); MEAN CORPUSCULAR VOLUME 96.1 fL (80.0-94.0); MEAN PLATELET VOLUME 9.8 fL (7.4-11.4); MONOCYTES # (AUTO) 0.4 10^3/uL (0.0-1.0); MONOCYTES % (AUTO) 8.3 %; NEUTROPHILS # (AUTO) 2.2 10^3/uL (1.5-6.6); NEUTROPHILS % (AUTO) 43.8 %; PLT - PLATELET COUNT 202 10^3/uL (130-450); RED BLOOD COUNT 4.62 10^6/uL (4.70-6.10); RED CELL DISTRIBUTION WIDTH 12.6 % (12.0-15.0); WHITE BLOOD COUNT 5.1 x10^3/uL (4.8-10.8)
[2020-10-31 09:57] LABS: ALBUMIN 4.3 g/dL (3.2-5.5); ALBUMIN/GLOBULIN RATIO 1.7 (1.0-2.2); ALKALINE PHOSPHATASE 53 IU/L (42-121); ALT ALANINE AMINOTRANSFERASE 20 IU/L (10-60); AST ASPARTATE AMINOTRANSFERASE 34 IU/L (10-42); BILIRUBIN,TOTAL 1.3 mg/dL (0.2-1.0); BUN - BLOOD UREA NITROGEN 24 mg/dL (6-20); CALCIUM 9.2 mg/dL (8.5-10.3); CARBON DIOXIDE - CO2 26 mmol/L (21-32); CHLORIDE 107 mmol/L (101-111); CHOL/HDL RATIO 2.9 (<5.0); CHOLESTEROL 194 mg/dL; GLUCOSE 95 mg/dL (70-100); HDL CHOLESTEROL 68 mg/dL; LDL CHOLESTEROL,CALCULATED 112 mg/dL; LDL/HDL RATIO 1.6 (<3.6); SODIUM 141 mmol/L (135-145); TOTAL PROTEIN 6.9 g/dL (6.7-8.2); VLDL CHOLESTEROL 14 mg/dL
== END 2020-10-31 09:23 | disposition home or self-care (01) ==
LOC: LAB 09:22
PROVIDERS: ATTEND Family Medicine
DX: I49.3 Ventricular premature depolarization (principal); E78.5 Hyperlipidemia, unspecified; I10 Essential (primary) hypertension; Z12.5 Encounter for screening for malignant neoplasm of prostate
CPT/HCPCS: 36415; 80053; 80061; 84443; 85025; G0103; 83721; 84153

== ENCOUNTER 2020-12-19 07:00 | Outpatient (CLI) | payer MEDICARE ==
--- NOTE | 2020-12-19 14:15 | XRAY Report ---
PROCEDURE: Elbow 3 View RT INDICATIONS: RIGHT ELBOW PAIN TECHNIQUE: 3 views of the elbow were acquired. COMPARISON: None. FINDINGS: Bones: No fractures or dislocations. No suspicious bony lesions. Scattered subchondral sclerosis a nd spurring. Spurring of the olecranon is also noted. There are scattered dystrophic calcifications. Soft tissues: No elbow joint effusion. No suspicious soft tissue calcifications. IMPRESSION: No definite fracture however follow-up radiographs in 10 days could be performed if the patient's sym ptoms do not improve to exclude occult fracture/assess for healing sclerosis. Reviewed by: Roman Gerard MD on 12/19/2020 2:14 PM PST Approved by: Roman Gerard MD on 12/19/2020 2:14 PM PST Station ID: [id number]
== END 2020-12-19 23:59 | disposition home or self-care (01) ==
LOC: DI.N 07:00
PROVIDERS: ATTEND Family Medicine
DX: M25.521 Pain in right elbow (principal)

== ENCOUNTER 2020-12-27 08:21 | Day surgery (SDC) | payer MEDICARE ==
[2020-12-27] MEDS ORDERED: LACTATED RINGERS 1,000 ML IV ONE ×2 (08:45→11:11)
[2020-12-27] MEDS ORDERED: MIDAZOLAM 2 MG/2 ML VIAL ONE (10:44)
[2020-12-27] MEDS ORDERED: fentaNYL 250 MCG/5 ML VIAL ONE (10:44)
[2020-12-27 11:32] VITALS: BP 112/56
== END 2020-12-27 08:22 | disposition home or self-care (01) ==
LOC: SDS 08:21
PROVIDERS: ATTEND Surgery
DX: Z12.11 Encounter for screening for malignant neoplasm of colon (principal); Z87.891 Personal history of nicotine dependence; K57.30 Diverticulosis of large intestine without perforation or abscess without bleeding; K64.8 Other hemorrhoids; I10 Essential (primary) hypertension; N40.0 Benign prostatic hyperplasia without lower urinary tract symptoms
CPT/HCPCS: G0121; J3010; J7120

== ENCOUNTER 2021-04-03 14:50 | Outpatient (CLI) | payer MEDICARE ==
--- NOTE | 2021-04-03 15:33 | XRAY Report ---
PROCEDURE: Ankle 3 View RT INDICATIONS: REPETITIVE STRAIN INJURY RT ANKLE TECHNIQUE: 3 views of the ankle were acquired. COMPARISON: None FINDINGS: Bones: No fractures or dislocations. Mild periarticular osteophyte formation at the tibiotalar joint . Ankle mortise is normally aligned. No suspicious bony lesions. Soft tissues: No tibiotalar joint effusion. Achilles tendon appears normal. IMPRESSION: Osteoarthritis. No acute fracture. No osseous lesion. If symptoms and/or clinical suspic ion for pathology continue, further assessment with repeat plain films, or advanced imaging (e.g., CT , MRI, or bone scan) is recommended for further assessment. Reviewed by: Salvador Mccollum MD on 04/03/2021 3:32 PM PDT Approved by: Salvador Mccollum MD on 04/03/2021 3:32 PM PDT Station ID: [id number]
== END 2021-04-03 14:51 | disposition home or self-care (01) ==
LOC: DI 14:50
PROVIDERS: ATTEND Family Medicine
DX: M19.071 Primary osteoarthritis, right ankle and foot (principal)

== ENCOUNTER 2021-04-24 08:17 | Outpatient (CLI) | payer MEDICARE ==
--- NOTE | 2021-04-24 11:18 | XRAY Report ---
PROCEDURE: Ankle 3 View RT INDICATIONS: REPETITIVE STRAIN INJURY OF R ANKLE TECHNIQUE: 3 views of the ankle were acquired. COMPARISON: 04/03/2021 FINDINGS: Bones: No fractures or dislocations. Mild tibiotalar joint degenerative arthritis. Ankle mortise is normally aligned. No suspicious bony lesions. Soft tissues: No tibiotalar joint effusion. Achilles tendon appears normal. IMPRESSION: Mild tibiotalar joint degenerative arthritis. No evidence acute bony abnormality of the right ankle. If clinical suspicion and/or symptoms persist, further assessment with repeat plain films or advanced imaging (e.g., CT, MRI, or bone scan) may be helpful for further assessment. Reviewed by: Vinny Vázquez MD on 04/24/2021 11:16 AM PDT Approved by: Vinny Vázquez MD on 04/24/2021 11:16 AM PDT Station ID: [id number]
== END 2021-04-24 23:59 | disposition home or self-care (01) ==
LOC: DI.N 08:17
PROVIDERS: ATTEND Orthopaedic Surgery
DX: M19.071 Primary osteoarthritis, right ankle and foot (principal)

== ENCOUNTER 2021-04-25 11:59 | Outpatient (CLI) | payer MEDICARE ==
--- NOTE | 2021-04-25 13:57 | MRI Report ---
PROCEDURE: Shoulder LT W/O INDICATIONS: SHOULDER PAIN TECHNIQUE: Noncontrast oblique coronal T2 fast spin echo with fat saturation, oblique sagittal T1 spin echo and T2 fast spin echo with fat saturation, axial T1 spin echo and T2 fast spin echo with fat saturation t hrough the shoulder. COMPARISON: Shoulder arthrogram dated 07/29/2019.. FINDINGS: Image quality: Diagnostic, susceptibility artifact from prior shoulder surgery is seen. Rotator cuff: There is suggestion of prior rotator cuff tendon repair with scattered susceptibility a rtifact in superior and posterior shoulder soft tissue. Tendinosis and low to moderate grade articula r surface partial-thickness tear involving distal supraspinatus at its insertion on humeral head is s een. Distal infraspinatus tendon is intact. Distal subscapularis tendinosis is noted. No full-thickne ss rotator cuff tendon rupture. Mild supraspinatus muscle atrophy is seen on sagittal images. Bones and bursae: Postsurgical changes are noted in anterior lateral humeral head near rotator cuff t endon insertion. No gross marrow edema. No acute fracture or dislocation. Expected postsurgical widen ing of acromioclavicular joint is also noted. No significant joint effusion or subacromial subdeltoid bursal fluid. Capsule and soft tissues: There is suggestion of inferior labral tear at 6 to 7:00 position. The jade ohumeral ligaments are grossly intact. The long head of the biceps tendon is not well visualized intr a-articularly. The rotator interval appears normal, without fibrosis. The coracohumeral ligament is normal in thickness. IMPRESSION: 1. Prior rotator cuff tendon repair with expected postsurgical changes and postsurgical widening of a cromioclavicular joint. No fracture or dislocation. Moderate glenohumeral joint osteoarthritis. 2. Tendinosis and low-grade articular surface partial-thickness tear involving distal supraspinatus a t its insertion on humeral head. Distal subscapularis tendinosis. Mild supraspinatus muscle atrophy. No full-thickness rotator cuff tendon rupture. 3. Suggestion of inferior labral tear at 6 to 7:00 position. 4. Nonvisualization of proximal intra-articular portion of long head of biceps which may represent po stsurgical changes versus proximal bicipital tendon rupture. Reviewed by: Yong Bustamante MD on 04/25/2021 1:56 PM PDT Approved by: Yong Bustamante MD on 04/25/2021 1:56 PM PDT Station ID: [id number]
== END 2021-04-25 12:00 | disposition home or self-care (01) ==
LOC: DI 11:59
PROVIDERS: ATTEND Orthopaedic Surgery
DX: M25.512 Pain in left shoulder (principal); M19.012 Primary osteoarthritis, left shoulder; M75.102 Unspecified rotator cuff tear or rupture of left shoulder, not specified as traumatic; M75.82 Other shoulder lesions, left shoulder

== ENCOUNTER 2021-08-04 13:30 | Outpatient (CLI) | payer MEDICARE ==
[2021-08-04 18:12] LABS: BASOPHILS # (AUTO) 0.1 10^3/uL (0.0-0.1); EOSINOPHILS # (AUTO) 0.1 10^3/uL (0.0-0.7); EOSINOPHILS % (AUTO) 1.8 %; HCT - HEMATOCRIT 43.4 % (42.0-52.0); HGB - HEMOGLOBIN 14.1 g/dL (14.0-18.0); LYMPHOCYTES % (AUTO) 39.1 %; MEAN CORPUSCULAR HEMOGLOBIN 31.4 pg (27.0-31.0); MEAN CORPUSCULAR HGB CONC 32.5 g/dL (32.0-36.0); MEAN CORPUSCULAR VOLUME 96.7 fL (80.0-94.0); MEAN PLATELET VOLUME 10.6 fL (7.4-11.4); MONOCYTES # (AUTO) 0.5 10^3/uL (0.0-1.0); MONOCYTES % (AUTO) 9.8 %; NEUTROPHILS # (AUTO) 2.4 10^3/uL (1.5-6.6); NEUTROPHILS % (AUTO) 47.9 %; PLT - PLATELET COUNT 224 10^3/uL (130-450); RED BLOOD COUNT 4.49 10^6/uL (4.70-6.10); RED CELL DISTRIBUTION WIDTH 12.8 % (12.0-15.0); WHITE BLOOD COUNT 5.1 x10^3/uL (4.8-10.8)
[2021-08-04 18:31] LABS: ALBUMIN/GLOBULIN RATIO 1.5 (1.0-2.2); ALKALINE PHOSPHATASE 48 IU/L (42-121); ALT ALANINE AMINOTRANSFERASE 17 IU/L (10-60); AST ASPARTATE AMINOTRANSFERASE 21 IU/L (10-42); BILIRUBIN,TOTAL 0.7 mg/dL (0.2-1.0); BUN - BLOOD UREA NITROGEN 22 mg/dL (6-20); CALCIUM 9.4 mg/dL (8.5-10.3); CARBON DIOXIDE - CO2 28 mmol/L (21-32); CHLORIDE 104 mmol/L (101-111); CHOL/HDL RATIO 3.1 (<5.0); CHOLESTEROL 188 mg/dL; GFR - MDRD 73 (>89); GLUCOSE 94 mg/dL (70-100); HDL CHOLESTEROL 60 mg/dL; LDL CHOLESTEROL,CALCULATED 101 mg/dL; LDL/HDL RATIO 1.7 (<3.6); SODIUM 139 mmol/L (135-145); TOTAL PROTEIN 6.6 g/dL (6.7-8.2); TRIGLYCERIDES 133 mg/dL; VLDL CHOLESTEROL 27 mg/dL
[2021-08-04 18:40] LABS: THYROID STIMULATING HORMONE 4.06 uIU/mL (0.34-5.60)
== END 2021-08-04 23:59 | disposition home or self-care (01) ==
LOC: LAB.WCP 13:30
PROVIDERS: ATTEND Nurse Practitioner
DX: I10 Essential (primary) hypertension (principal); I49.3 Ventricular premature depolarization; E78.5 Hyperlipidemia, unspecified
CPT/HCPCS: 36415; 80053; 80061; 83721; 84443; 85025

== ENCOUNTER 2021-08-15 11:41 | Outpatient (CLI) | payer MEDICARE ==
--- NOTE | 2021-08-15 12:13 | XRAY Report ---
PROCEDURE: Wrist 4 View LT INDICATIONS: WRIST ARTHROPATHY TECHNIQUE: 4 views of the wrist were acquired. COMPARISON: None. FINDINGS: BONES: No acute, displaced fracture or dislocation. The carpal bones are normally aligned. Moderate t o advanced arthrosis of the first and second carpometacarpal articulations. Small exostosis arising f rom the mid aspect of the first metacarpal. SOFT TISSUES: No focal abnormality. IMPRESSION: 1.Moderate to advanced arthrosis of the first and second carpometacarpal articulations. Reviewed by: Elliot Dawson MD on 08/15/2021 12:12 PM PDT Approved by: Elliot Dawson MD on 08/15/2021 12:12 PM PDT Station ID: [id number]
== END 2021-08-15 11:42 | disposition home or self-care (01) ==
LOC: DI 11:41
PROVIDERS: ATTEND Family Medicine
DX: M19.032 Primary osteoarthritis, left wrist (principal)

== ENCOUNTER 2021-10-01 12:34 | Emergency (ER) | payer MEDICARE ==
--- NOTE | 2021-10-01 13:07 | ED Physician Documentation ---
History of Present Illness - Stated complaint Stated Complaint: FAINT - Chief complaint Chief Complaint: Cardiac - Additonal information Additional information: 76-year-old male presents to the emergency department for evaluation of feeling faint. He states about 3 days ago he was driving to [place] and had a vasovagal episode however since then it has gone unabated. He states that he was diagnosed with vasovagal syndrome a number of years ago. Gentleman reports that he typically has a heart rate in the 40s or 50s. He plays tennis for 2 hours 3 times a week. He denies any chest pain but does endorse some mild shortness of air. He has found that he has to concentrate forcefully when driving to avoid fainting. no recetn cough, cold, congestion. He is fully vaccinated for COVID 19 He did have an echocardiogram done in 2018 that did show an ejection fraction of 45 to 50%. At that time no aortic stenosis. Patient is not on any rate control medications. Has a history hypertension for which she takes losartan. Also typically takes Vicodin once daily after playing tennis. Not anticoagulated. Occasional alcohol. No tobacco. 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 Burnham with [facility] 2018 meds: lossartan, hydrocodone Review of Systems Constitutional: denies: Fever, Chills Eyes: reports: Reviewed and negative Ears: reports: Reviewed and negative Throat: reports: Reviewed and negative Cardiac: reports: Reviewed and negative Respiratory: reports: Dyspnea. denies: Cough GI: reports: Reviewed and negative : reports: Reviewed and negative Skin: denies: Rash, Lesions Musculoskeletal: reports: Reviewed and negative Neurologic: reports: Near syncope. denies: Generalized weakness, Focal weakness, Numbness, Confused, Altered mental status, Headache, Head injury PD PAST MEDICAL HISTORY - Past Medical History Cardiovascular: Hypertension Respiratory: Other Neuro: None GI: None : None - Past Surgical History Past Surgical History: Yes General: Other Ortho: Other - Present Medications Home Medications: Ambulatory Orders Medication Instructions Recorded Confirmed Losartan [Cozaar] 25 mg PO BID 05/02/17 10/01/21 Hydrocodone/Acetaminophen 1 each PO QPM PRN 10/23/19 10/01/21 [Hydrocodon-Acetaminophn 10-325] Red Yeast Rice 600 mg PO DAILY 10/23/19 10/01/21 - Allergies Allergies/Adverse Reactions: Allergies Allergy/AdvReac Type Severity Reaction Status Date / Time bromide salts Allergy Itching Verified 10/01/21 12:46 lisinopril Allergy Itching Verified 10/01/21 12:46 Penicillins Allergy Itching Verified 10/01/21 12:46 - Social History Does the pt smoke?: No Smoking Status: Former smoker (Quit 40 years ago) Does the pt drink ETOH?: No Does the pt have substance abuse?: No - Immunizations Immunizations are current?: Yes - POLST Patient has POLST: No PD ED PE NORMAL - General General: Alert and oriented X 3, No acute distress, Well developed/nourished - HEENT HEENT: Atraumatic, Moist mucous membranes, Pharynx benign - Neck Neck: Supple, no meningeal sign, No adenopathy, Thyroid normal, No JVD - Cardiac Cardiac: RRR (bradycardia in the 40's), No murmur, No gallop, No rub - Respiratory Respiratory: No respiratory distress, Clear bilaterally - Abdomen Abdomen: Normal bowel sounds, Soft, Non tender, Non distended - Back Back: No CVA TTP, No spinal TTP - Derm Derm: Warm and dry - Extremities Extremities: No deformity, No tenderness to palpate, Normal ROM s pain - Psych Psych: Normal mood Results - Vitals Vitals: Vital Signs - 24 hr 10/01/21 10/01/21 10/01/21 12:42 13:27 14:08 Temperature 36.6 C 36.5 C Heart Rate 48 L 47 L Heart Rate [ 48 L Sitting] Heart Rate [ 53 L Standing] Heart Rate [ 47 L Supine] Respiratory 16 17 Rate Blood Pressure 187/62 H 168/74 H Blood Pressure 165/74 H [Sitting] Blood Pressure 146/83 H [Standing] Blood Pressure 157/83 H [Supine] O2 Saturation 100 98 10/01/21 14:24 Temperature Heart Rate 62 Heart Rate [ Sitting] Heart Rate [ Standing] Heart Rate [ Supine] Respiratory Rate Blood Pressure Blood Pressure [Sitting] Blood Pressure [Standing] Blood Pressure [Supine] O2 Saturation 98 Oxygen O2 Source Room air - EKG (time done) 1244 Rate: Rate (enter#) (47) Rhythm: Sinus bradycardia [place]: Normal Intervals: Normal [place]. No: Prolonged QT QRS: LVH Ischemia: Non specific changes (flat t waves II, III, AVF) Compare to prior EKG: Unchanged from prior EKG Computer interpretation: Agree with computer - Labs Labs: Laboratory Tests 10/01/21 10/01/21 10/01/21 13:12 13:12 13:12 WBC 4.5 L RBC 4.53 L Hgb 14.4 Hct 42.0 MCV 92.7 MCH 31.8 H MCHC 34.3 RDW 12.3 Plt Count 204 MPV 10.1 Neut # (Auto) 2.3 Lymph # (Auto) 1.7 [place] # (Auto) 0.4 Eos # (Auto) 0.0 Baso # (Auto) 0.0 Absolute Nucleated RBC 0.00 Nucleated RBC % 0.0 Sodium 139 Potassium 4.1 Chloride 106 Carbon Dioxide 24 Anion Gap 9.0 BUN 19 Creatinine 1.0 Estimated GFR (MDRD) 73 L Glucose 96 Calcium 8.9 Phosphorus Magnesium Total Bilirubin 0.8 AST 26 ALT 18 Alkaline Phosphatase 57 Troponin I High Sens 8.6 Total Protein 6.4 L Albumin 3.9 Globulin 2.5 Albumin/Globulin Ratio 1.6 Lipase 30 TSH 10/01/21 10/01/21 13:12 13:12 WBC RBC Hgb Hct MCV MCH MCHC RDW Plt Count MPV Neut # (Auto) Lymph # (Auto) [place] # (Auto) Eos # (Auto) Baso # (Auto) Absolute Nucleated RBC Nucleated RBC % Sodium Potassium Chloride Carbon Dioxide Anion Gap BUN Creatinine Estimated GFR (MDRD) Glucose Calcium Phosphorus 3.0 Magnesium 2.6 Total Bilirubin AST ALT Alkaline Phosphatase Troponin I High Sens Total Protein Albumin Globulin Albumin/Globulin Ratio Lipase TSH 3.75 - Rads (name of study) cxr Radiology: Final report received (no acute findings) PD MEDICAL DECISION MAKING - ED course Complexity details: reviewed results, re-evaluated patient, d/w patient ED course: 76-year-old male presents emergency department for evaluation of feeling lightheaded, faint and having some episodes of near syncope. Symptoms began about 3 days ago. He does report a previous history of vasovagal syndrome. 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 He is denying any chest pain or shortness of air. Initial screening EKG does show a sinus bradycardia in the rate of 40s. No electrical conduction abnormalities are noted. While here on the monitor in the emergency department he has had some occasional PVCs but no other ectopy or ar rhythmia noted. Patient is not on any rate control medications. His orthostatics here in the emergency department are negative. Screening labs show no worrisome anemia or electrolyte abnormalities. High- sensitivity troponin is negative. This gentleman was ambulated in the emergency department with good tolerance. His heart rate jessica into the 60s. He was denying feeling faint or short of air. This case was discussed with -pro [place] physician Dr. Dodson. He is going to make a urgent referral to cardiology as well as for a Holter monitor. I briefly discussed this case with our admitting hospitalist Dr. Cardona however he felt that admission for echocardiogram and stress test could be deferred at on an outpatient basis as patient has been otherwise stable here in the emergency department. Plan and findings were discussed with the patient. He will follow up closely with his Dr. Murrieta in order to obtain the appropriate outpatient referrals. Emergent return precautions were discussed. Departure - Departure Disposition: 01 Home, Self Care Clinical Impression: Near syncope, Bradycardia Condition: Stable Record reviewed to determine appropriate education?: Yes Instructions: ED Bradycardia Follow-Up: Juno Aguero MD [Primary Care Provider] - Comments: Marco Antonio you are seen in the emergency department today because you have been feeling faint and lightheaded as though you want a pass out. While here in the emergency department your heart rate has been in the 40s though when you ambulate or walk in the hallway it seems to go up into the 60s. Your screening labs and electrolytes are all essentially unremarkable. I did discuss this case with a [facility] transfer physician. They will work to make a referral for you to obtain a Holter monitor as well as referral to a field organizer. A Holter monitor is a device that can monitor your heart rate during activity and rest. It is important that you discuss this emergency department visit with Dr. Murrieta. You should be referred for an outpatient echocardiogram and stress test as soon as possible. If at any point you feel that your symptoms are worsening, you have any fainting episodes, develop chest pain then please return immediately to the ER. I recommend that you do not drive a vehicle until cleared by your field organizer.
--- NOTE | 2021-10-01 13:17 | XRAY Report ---
PROCEDURE: Chest 1 View X-Ray INDICATIONS: Chest Pain TECHNIQUE: One view of the chest was acquired. COMPARISON: None FINDINGS: Surgical changes and devices: None. Lungs and pleura: No pleural effusions or pneumothorax. Lungs are clear. Mediastinum: Mediastinal contours appear normal. Heart size is normal. Bones and chest wall: No suspicious bony lesions. Overlying soft tissues appear unremarkable. IMPRESSION: No acute cardiopulmonary abnormality. Reviewed by: Abdi Chavez on 10/01/2021 12:15 PM [email or web address] Approved by: Abdi Chavez on 10/01/2021 12:15 PM [facility] Station ID: [id number]
[2021-10-01 13:18] LABS: BASOPHILS % (AUTO) 0.9 %; EOSINOPHILS % (AUTO) 0.9 %; HGB - HEMOGLOBIN 14.4 g/dL (14.0-18.0); LYMPHOCYTES # (AUTO) 1.7 10^3/uL (1.5-3.5); LYMPHOCYTES % (AUTO) 38.3 %; MEAN CORPUSCULAR HEMOGLOBIN 31.8 pg (27.0-31.0); MEAN CORPUSCULAR HGB CONC 34.3 g/dL (32.0-36.0); MEAN CORPUSCULAR VOLUME 92.7 fL (80.0-94.0); MEAN PLATELET VOLUME 10.1 fL (7.4-11.4); MONOCYTES # (AUTO) 0.4 10^3/uL (0.0-1.0); MONOCYTES % (AUTO) 9.7 %; NEUTROPHILS # (AUTO) 2.3 10^3/uL (1.5-6.6); PLT - PLATELET COUNT 204 10^3/uL (130-450); RED BLOOD COUNT 4.53 10^6/uL (4.70-6.10); RED CELL DISTRIBUTION WIDTH 12.3 % (12.0-15.0); WHITE BLOOD COUNT 4.5 x10^3/uL (4.8-10.8)
[2021-10-01 13:37] LABS: ALBUMIN 3.9 g/dL (3.2-5.5); ALBUMIN/GLOBULIN RATIO 1.6 (1.0-2.2); BILIRUBIN,TOTAL 0.8 mg/dL (0.2-1.0); CALCIUM 8.9 mg/dL (8.5-10.3); POTASSIUM 4.1 mmol/L (3.5-5.0); TOTAL PROTEIN 6.4 g/dL (6.7-8.2)
[2021-10-01 14:11] VITALS: BP 168/74
[2021-10-01 14:18] LABS: MAGNESIUM 2.6 mg/dL (1.7-2.8)
== END 2021-10-01 15:28 | disposition home or self-care (01) ==
LOC: ED 12:34
DX: R55 Syncope and collapse (principal); R00.1 Bradycardia, unspecified; I49.3 Ventricular premature depolarization; I10 Essential (primary) hypertension; Z87.891 Personal history of nicotine dependence
CPT/HCPCS: 36415; 80053; 83690; 83735; 84100; 84443; 84484; 85025; 93005; 99283; 99284

== ENCOUNTER 2022-01-09 14:50 | Outpatient (CLI) | payer MEDICARE ==
--- NOTE | 2022-01-09 17:44 | XRAY Report ---
PROCEDURE: Knee 3 View RT INDICATIONS: KNEE PAIN,RIGHT,ACUTE TECHNIQUE: 3 views of the right knee(s) were acquired. COMPARISON: None. FINDINGS: Bones: No fractures or dislocations. Mild to moderate tricompartmental osteoarthritis is seen more p rominent in medial femoral tibial compartment. No patellar subluxation. No suspicious bony lesions. Soft tissues: Moderate suprapatellar joint effusion. No suspicious soft tissue calcifications. IMPRESSION: No right knee fracture or dislocation. Mild to moderate tricompartmental osteoarthritis. Moderate suprapatellar joint effusion. If indicated, MRI of knee can be done for evaluation of inter nal derangement. Reviewed by: Yong Bustamante MD on 01/09/2022 5:42 PM PDT Approved by: Yong Bustamante MD on 01/09/2022 5:42 PM PDT Station ID: [id number]
== END 2022-01-09 14:51 | disposition home or self-care (01) ==
LOC: DI 14:50
PROVIDERS: ATTEND Physician Assistant
DX: M17.11 Unilateral primary osteoarthritis, right knee (principal); M25.461 Effusion, right knee

== ENCOUNTER 2022-08-10 12:48 | Emergency (ER) | payer MEDICARE ==
[2022-08-10 13:09] VITALS: BP 147/72
--- NOTE | 2022-08-10 14:28 | ED Physician Documentation ---
PD HPI OPHTHO - Stated complaint Stated Complaint: COUGH - Chief complaint Chief Complaint: Heent - History obtained from History obtained from: Patient - History of Present Illness Timing - onset: Today Timing - duration: Days Timing - details: Gradual onset Pain level max: 0 Pain level now: 0 Location: Left Quality / character: No: Itching, Burning, Aching, Throbbing Associated symptoms: Discharge. No: FB sensation Contributing factors: No: FB, Chemical exposure, acid, Chemical exposure, base, Blunt trauma, Penetrating trauma - Additional information Additional information: Patient is a 77-year-old male who states he has had COVID for the past 5 to 6 days. Today he noticed yellow drainage from the left eye and crusting to the left eye. Better with warm water. Nothing makes it worse. No pain. No foreign body. Review of Systems Constitutional: denies: Fever, Chills Nose: reports: Rhinorrhea / runny nose, Congestion Respiratory: reports: Cough (dry, + covid) GI: denies: Vomiting, Diarrhea Skin: denies: Rash Musculoskeletal: denies: Neck pain, Back pain Neurologic: denies: Headache PD PAST MEDICAL HISTORY - Past Medical History Cardiovascular: Hypertension Respiratory: Other Neuro: None GI: None : None - Past Surgical History Past Surgical History: Yes General: Other Ortho: Other - Present Medications Home Medications: Ambulatory Orders Medication Instructions Recorded Confirmed Losartan [Cozaar] 25 mg PO BID 05/02/17 10/01/21 Hydrocodone/Acetaminophen 1 each PO QPM PRN 10/23/19 10/01/21 [Hydrocodon-Acetaminophn 10-325] Red Yeast Rice 600 mg PO DAILY 10/23/19 10/01/21 Polymyxin B/Trimeth Ophth Drop 1 drops LEFTEYE Q3H 7 Days #1 each 08/10/22 [Polytrim Ophth Drops] - Allergies Allergies/Adverse Reactions: Allergies Allergy/AdvReac Type Severity Reaction Status Date / Time bromide salts Allergy Itching Verified 08/10/22 13:09 lisinopril Allergy Itching Verified 08/10/22 13:09 Penicillins Allergy Itching Verified 08/10/22 13:09 - Social History Does the pt smoke?: No Smoking Status: Former smoker (Quit 40 years ago) Does the pt drink ETOH?: No Does the pt have substance abuse?: No - Immunizations Immunizations are current?: Yes - POLST Patient has POLST: No PD ED PE NORMAL - Vitals Vital signs reviewed: Yes - General General: Alert and oriented X 3, No acute distress - HEENT HEENT: Ears normal, Moist mucous membranes, Pharynx benign, Other (L eye - Mild conjunctival injection and yellow drainage.) - Derm Derm: Warm and dry - Neuro Neuro: Alert and oriented X 3 Results - Vitals Vitals: Vital Signs - 24 hr 08/10/22 13:05 Temperature 36.5 C Heart Rate 62 Respiratory 18 Rate Blood Pressure 147/72 H O2 Saturation 98 Oxygen O2 Source Room air PD MEDICAL DECISION MAKING - ED course Complexity details: considered differential, d/w patient ED course: 77-year-old male with what appears to be a left eye conjunctivitis. We will place on Polytrim ophthalmic and have him follow-up with his doctor for further care. Patient counseled regarding signs and symptoms for which I believe and urgent re-evaluation would be necessary. Patient with good understanding of and agreement to plan and is comfortable going home at this time This document was made in part using voice recognition software. While efforts are made to proofread this document, sound alike and grammatical errors may occur. Departure - Departure Disposition: 01 Home, Self Care Clinical Impression: Conjunctivitis Qualifiers: Conjunctivitis type: acute Acute conjunctivitis type: bacterial Laterality: left Qualified Code(s): H10.32 - Unspecified acute conjunctivitis, left eye Condition: Good Instructions: ED Conjunctivitis Bacterial Follow-Up: your,doctor as needed [Other] Prescriptions: Polymyxin B/Trimeth Ophth Drop [Polytrim Ophth Drops] 1 drops LEFTEYE Q3H 7 Days #1 each Comments: Your prescriptions were sent to the [facility] pharmacy. Use the drops as prescribed. Follow-up with your doctor for further care. Return if you worsen.
== END 2022-08-10 14:50 | disposition home or self-care (01) ==
LOC: ED 12:48
DX: H10.32 Unspecified acute conjunctivitis, left eye (principal); Z87.891 Personal history of nicotine dependence; I10 Essential (primary) hypertension
CPT/HCPCS: 99282

== ENCOUNTER 2023-03-05 16:32 | Outpatient (CLI) | payer MEDICARE ==
--- NOTE | 2023-03-06 17:30 | XRAY Report ---
PROCEDURE: Shoulder 3 View RT INDICATIONS: PAIN IN RIGHT SHOULDER TECHNIQUE: 3 views of the shoulder were acquired. COMPARISON: None. FINDINGS: Bones: No fractures or dislocations. Moderate acromioclavicular joint and glenohumeral joint osteoa rthritic changes are seen. No suspicious bony lesions. Visualized ribs appear intact. Soft tissues: No suspicious soft tissue calcifications. IMPRESSION: Moderate right shoulder joint osteoarthritis. No acute fracture or dislocation. No gross soft tissue abnormalities. Reviewed by: Yong Bustamante MD on 03/06/2023 5:29 PM PDT Approved by: Yong Bustamante MD on 03/06/2023 5:29 PM PDT Station ID: [id number]
== END 2023-03-05 16:33 | disposition home or self-care (01) ==
LOC: DI 16:32
PROVIDERS: ATTEND Nurse Practitioner Family
DX: M19.011 Primary osteoarthritis, right shoulder (principal)

== ENCOUNTER 2023-08-12 09:52 | Outpatient (CLI) | payer MEDICARE ==
[2023-08-12 10:13] LABS: BASOPHILS % (AUTO) 0.8 %; EOSINOPHILS # (AUTO) 0.1 10^3/uL (0.0-0.7); EOSINOPHILS % (AUTO) 1.9 %; HGB - HEMOGLOBIN 15.5 g/dL (14.0-18.0); LYMPHOCYTES # (AUTO) 1.9 10^3/uL (1.5-3.5); MEAN CORPUSCULAR HEMOGLOBIN 32.2 pg (27.0-31.0); MEAN CORPUSCULAR VOLUME 89.4 fL (80.0-94.0); MEAN PLATELET VOLUME 9.9 fL (7.4-11.4); MONOCYTES # (AUTO) 0.4 10^3/uL (0.0-1.0); MONOCYTES % (AUTO) 8.1 %; NEUTROPHILS # (AUTO) 2.8 10^3/uL (1.5-6.6); NEUTROPHILS % (AUTO) 52.8 %; PLT - PLATELET COUNT 205 10^3/uL (130-450); RED BLOOD COUNT 4.81 10^6/uL (4.70-6.10); RED CELL DISTRIBUTION WIDTH 12.1 % (12.0-15.0); WHITE BLOOD COUNT 5.3 x10^3/uL (4.8-10.8)
[2023-08-12 10:28] LABS: ALBUMIN 4.2 g/dL (3.2-5.5); ALBUMIN/GLOBULIN RATIO 1.8 (1.0-2.2); ALKALINE PHOSPHATASE 62 IU/L (42-121); ALT ALANINE AMINOTRANSFERASE 12 IU/L (10-60); AST ASPARTATE AMINOTRANSFERASE 19 IU/L (10-42); BILIRUBIN,TOTAL 0.9 mg/dL (0.2-1.0); BUN - BLOOD UREA NITROGEN 17 mg/dL (6-20); CALCIUM 9.5 mg/dL (8.5-10.3); CARBON DIOXIDE - CO2 27 mmol/L (21-32); CHLORIDE 106 mmol/L (101-111); CHOL/HDL RATIO 3.3 (<5.0); CHOLESTEROL 176 mg/dL; GFR - MDRD 72 (>89); GLUCOSE 97 mg/dL (74-104); HDL CHOLESTEROL 54 mg/dL; LDL CHOLESTEROL,CALCULATED 94 mg/dL; LDL/HDL RATIO 1.7 (<3.6); POTASSIUM 3.8 mmol/L (3.5-4.5); SODIUM 139 mmol/L (135-145); TOTAL PROTEIN 6.5 g/dL (6.4-8.9); TRIGLYCERIDES 142 mg/dL (48-352); VLDL CHOLESTEROL 28 mg/dL
[2023-08-12 10:43] LABS: THYROID STIMULATING HORMONE 4.86 uIU/mL (0.34-5.60)
== END 2023-08-12 09:53 | disposition home or self-care (01) ==
LOC: LAB 09:52
PROVIDERS: ATTEND Family Medicine
DX: I10 Essential (primary) hypertension (principal); G89.29 Other chronic pain; N40.0 Benign prostatic hyperplasia without lower urinary tract symptoms; Z12.5 Encounter for screening for malignant neoplasm of prostate; E78.5 Hyperlipidemia, unspecified; N52.9 Male erectile dysfunction, unspecified
CPT/HCPCS: 36415; 80053; 80061; 84443; 85025; G0103; 83721; 84153

== ENCOUNTER 2024-01-01 10:54 | Outpatient (CLI) | payer MEDICARE ==
--- NOTE | 2024-01-01 12:01 | XRAY Report ---
PROCEDURE: Chest 2V INDICATIONS: EXERTIONAL DYSPNEA TECHNIQUE: 2 views of the chest were acquired. COMPARISON: 10/01/2021. FINDINGS: Surgical changes and devices: None. Lungs and pleura: No pleural effusions or pneumothorax. Lungs are clear. Mediastinum: Mediastinal contours appear normal. Heart size is normal. Bones and chest wall: No suspicious bony lesions. Overlying soft tissues appear unremarkable. IMPRESSION: No acute cardiopulmonary process. Reviewed by: Billy Berry MD on 01/01/2024 11:59 AM PDT Approved by: Billy Berry MD on 01/01/2024 11:59 AM PDT Station ID: [id number]
== END 2024-01-01 10:55 | disposition home or self-care (01) ==
LOC: DI 10:54
PROVIDERS: ATTEND Family Medicine
DX: R06.09 Other forms of dyspnea (principal)

== ENCOUNTER 2024-01-02 10:55 | Outpatient (CLI) | payer MEDICARE ==
[2024-01-02 11:07] LABS: BASOPHILS # (AUTO) 0.1 10^3/uL (0.0-0.1); BASOPHILS % (AUTO) 0.9 %; EOSINOPHILS % (AUTO) 0.7 %; HCT - HEMATOCRIT 46.6 % (42.0-52.0); HGB - HEMOGLOBIN 15.6 g/dL (14.0-18.0); LYMPHOCYTES # (AUTO) 1.9 10^3/uL (1.5-3.5); MEAN CORPUSCULAR HEMOGLOBIN 31.4 pg (27.0-31.0); MEAN CORPUSCULAR HGB CONC 33.5 g/dL (32.0-36.0); MEAN CORPUSCULAR VOLUME 93.8 fL (80.0-94.0); MEAN PLATELET VOLUME 9.9 fL (7.4-11.4); MONOCYTES # (AUTO) 0.5 10^3/uL (0.0-1.0); MONOCYTES % (AUTO) 8.5 %; NEUTROPHILS # (AUTO) 3.3 10^3/uL (1.5-6.6); NEUTROPHILS % (AUTO) 57.6 %; PLT - PLATELET COUNT 218 10^3/uL (130-450); RED BLOOD COUNT 4.97 10^6/uL (4.70-6.10); RED CELL DISTRIBUTION WIDTH 12.7 % (12.0-15.0); WHITE BLOOD COUNT 5.8 x10^3/uL (4.8-10.8)
[2024-01-02 11:21] LABS: ALBUMIN 4.4 g/dL (3.2-5.5); ALKALINE PHOSPHATASE 68 IU/L (42-121); ALT ALANINE AMINOTRANSFERASE 14 IU/L (10-60); AST ASPARTATE AMINOTRANSFERASE 20 IU/L (10-42); BILIRUBIN,TOTAL 0.7 mg/dL (0.2-1.0); BUN - BLOOD UREA NITROGEN 19 mg/dL (6-20); CALCIUM 9.9 mg/dL (8.5-10.3); CARBON DIOXIDE - CO2 30 mmol/L (21-32); CHLORIDE 106 mmol/L (101-111); CHOL/HDL RATIO 3.3 (<5.0); CHOLESTEROL 176 mg/dL; CREATININE 1.1 mg/dL (0.6-1.3); GFR - MDRD 65 (>89); GLUCOSE 95 mg/dL (74-104); HDL CHOLESTEROL 54 mg/dL; LDL CHOLESTEROL,CALCULATED 88 mg/dL; LDL/HDL RATIO 1.6 (<3.6); POTASSIUM 4.2 mmol/L (3.5-4.5); SODIUM 140 mmol/L (135-145); TOTAL PROTEIN 6.6 g/dL (6.4-8.9); TRIGLYCERIDES 172 mg/dL (48-352); VLDL CHOLESTEROL 34 mg/dL
[2024-01-02 11:35] LABS: THYROID STIMULATING HORMONE 5.75 uIU/mL (0.34-5.60)
== END 2024-01-02 10:56 | disposition home or self-care (01) ==
LOC: LAB 10:55
PROVIDERS: ATTEND Family Medicine
DX: I10 Essential (primary) hypertension (principal); I95.1 Orthostatic hypotension; R00.1 Bradycardia, unspecified; E78.5 Hyperlipidemia, unspecified; R06.09 Other forms of dyspnea
CPT/HCPCS: 36415; 80053; 80061; 83721; 84439; 84443; 85025

== ENCOUNTER 2024-03-27 10:53 | Outpatient (CLI) | payer MEDICARE ==
[2024-03-27 11:06] LABS: BASOPHILS % (AUTO) 0.9 %; EOSINOPHILS % (AUTO) 0.9 %; HCT - HEMATOCRIT 43.7 % (42.0-52.0); HGB - HEMOGLOBIN 14.5 g/dL (14.0-18.0); LYMPHOCYTES # (AUTO) 1.7 10^3/uL (1.5-3.5); LYMPHOCYTES % (AUTO) 39.1 %; MEAN CORPUSCULAR HEMOGLOBIN 31.5 pg (27.0-31.0); MEAN CORPUSCULAR HGB CONC 33.2 g/dL (32.0-36.0); MEAN PLATELET VOLUME 10.1 fL (7.4-11.4); MONOCYTES # (AUTO) 0.4 10^3/uL (0.0-1.0); MONOCYTES % (AUTO) 10.1 %; NEUTROPHILS # (AUTO) 2.1 10^3/uL (1.5-6.6); NEUTROPHILS % (AUTO) 48.8 %; PLT - PLATELET COUNT 200 10^3/uL (130-450); RED CELL DISTRIBUTION WIDTH 12.8 % (12.0-15.0); WHITE BLOOD COUNT 4.4 x10^3/uL (4.8-10.8)
[2024-03-27 11:12] LABS: INR 1.2 (0.8-1.2); PT - PROTHROMBIN TIME 12.9 secs (9.9-12.6)
[2024-03-27 11:18] LABS: CALCIUM 9.3 mg/dL (8.5-10.3); CREATININE 1.1 mg/dL (0.6-1.3); POTASSIUM 4.4 mmol/L (3.5-4.5)
== END 2024-03-27 10:54 | disposition home or self-care (01) ==
LOC: LAB 10:53
PROVIDERS: ATTEND Internal Medicine
DX: I44.2 Atrioventricular block, complete (principal)
CPT/HCPCS: 36415; 80048; 85025; 85610

== ENCOUNTER 2024-05-25 10:32 | Emergency (ER) | payer MEDICARE ==
[2024-05-25 10:45] VITALS: O2SAT 100
[2024-05-25 11:23] LABS: BILIRUBIN,URINE NEGATIVE (NEGATIVE); GLUCOSE, URINE (UA) NEGATIVE (NEGATIVE); KETONES,URINE (UA) NEGATIVE (NEGATIVE); LEUKOCYTE ESTERASE, URINE MODERATE (NEGATIVE); NITRITE,URINE POSITIVE (NEGATIVE); OCCULT BLOOD,URINE LARGE (NEGATIVE); PROTEIN,URINE NEGATIVE (NEGATIVE); UROBILINOGEN,URINE 1 (NORMAL) E.U./dL (NORMAL)
[2024-05-25 11:34] LABS: BACTERIA,URINE Many /HPF (None Seen); CLARITY,URINE CLOUDY (CLEAR); RBC,URINE TNTC /HPF (0-5); SQUAMOUS EPITHELIAL CELL,UR RARE Squamous (<= Few); WBC,URINE >25 /HPF (0-3)
--- NOTE | 2024-05-25 11:44 | ED Physician Documentation ---
PD HPI MALE - Stated complaint Stated Complaint: - Chief complaint Chief Complaint: UTI - Additional information Additional information: 79-year-old male with history of hypertension no history of BPH history of STIs over 50 years ago presents emergency department for urinary frequency fevers chills and malaise. Patient says this has been going on for about 2 to 3 days now. Every time he voids he says that there is some dysuria and he feels discomfort to the point where it feels like it is burning his skin. He has no new sexual partners no recent changes in medications. PD PAST MEDICAL HISTORY - Past Medical History Past Medical History: Yes Cardiovascular: Hypertension Respiratory: Other Neuro: None GI: None : None - Past Surgical History Past Surgical History: Yes General: Other Ortho: Other Cardiovascular: Valve replacement - Present Medications Home Medications: Ambulatory Orders Medication Instructions Recorded Confirmed Hydrocodone/Acetaminophen 1 each PO QPM PRN 10/23/19 05/25/24 [Hydrocodon-Acetaminophn 10-325] Red Yeast Rice 600 mg PO DAILY 10/23/19 05/25/24 Cefuroxime Axetil [Cefuroxime] 500 mg PO BID 10 Days #20 tablet 05/25/24 Losartan Potassium [Cozaar] 1 tab PO DAILY 05/25/24 05/25/24 Losartan [Cozaar] 1 tab PO DAILY 05/25/24 05/25/24 Naproxen 1 tab PO DAILY 05/25/24 05/25/24 - Allergies Allergies/Adverse Reactions: Allergies Allergy/AdvReac Type Severity Reaction Status Date / Time bromide salts Allergy Itching Verified 05/25/24 10:43 lisinopril Allergy Itching Verified 05/25/24 10:43 Penicillins Allergy Itching Verified 05/25/24 10:43 - Social History Does the pt smoke?: No Smoking Status: Never smoker Does the pt drink ETOH?: No Does the pt have substance abuse?: No - Immunizations Immunizations are current?: Yes - POLST Patient has POLST: No PD ED PE NORMAL - Vitals Vital signs reviewed: Yes - General General: Alert and oriented X 3, No acute distress, Well developed/nourished - HEENT HEENT: Atraumatic - Respiratory Respiratory: No respiratory distress - Abdomen Abdomen: Normal bowel sounds, Non tender - Back Back: No CVA TTP - Derm Derm: Normal color, Warm and dry, No rash - Extremities Extremities: No deformity, No edema, No calf tenderness / cord - Neuro Neuro: Alert and oriented X 3, supervisor paper testing 2-12 intact, No motor deficit, No sensory deficit, Normal speech - Psych Psych: Normal mood Results - Vitals Vitals: Vital Signs - 24 hr 05/25/24 05/25/24 10:39 12:08 Temperature 36.8 C Heart Rate 60 72 Respiratory 20 18 Rate Blood Pressure 148/70 H 134/84 H O2 Saturation 100 100 Oxygen O2 Source Room air - Labs Labs: Microbiology 05/25/24 11:10 Urine Culture - Preliminary Urine,Random Escherichia Coli Laboratory Tests 05/25/24 05/25/24 11:10 11:10 Urine Color YELLOW Urine Clarity CLOUDY Urine pH 6.0 Ur Specific [place] 1.025 Urine Protein NEGATIVE Urine Glucose (UA) NEGATIVE Urine Ketones NEGATIVE Urine Occult Blood LARGE H Urine Nitrite POSITIVE H Urine Bilirubin NEGATIVE Urine Urobilinogen 1 (NORMAL) Ur Leukocyte Esterase MODERATE H Urine RBC TNTC H Urine WBC >25 H Ur Squamous Epith Cells RARE Squamous Urine Bacteria Many H Ur Microscopic Review INDICATED Urine Culture Comments INDICATED Chlam trachomat DNA PCR NEGATIVE N.gonorrhoeae DNA (PCR) NEGATIVE T. vaginalis (PCR) NEGATIVE PD Medical Decision Making - ED course ED course: 79-year-old male presents emergency department for urinary frequency urgency and dysuria. Urinalysis has been completed and does reveal nitrites leukocytes and bacteria. He also did have a large amount of blood. We discussed further workup which included labs and a CT scan patient opted to follow-up with his primary care provider for further workup and said that he wanted to treat this as a urinary tract infection for now and pursue imaging with his PCP this week for further evaluation. Patient says that he is very stressed and worried about getting home to his who has an injury and is unable to care for herself right now. He has no new sexual partners does have a history of STDs a very long time ago over 50 years ago and a prescription was sent of cefuroxime to treat as urinary tract infection and urine was sent for further evaluation of possible STIs. Patient given strict ER return precautions and told if he changes his mind he is more than welcome to come back to the emergency department for further workup and evaluation. Departure - Departure Disposition: 01 Home, Self Care Clinical Impression: UTI (urinary tract infection) Qualifiers: Urinary tract infection type: acute cystitis Hematuria presence: with hematuria Qualified Code(s): N30.01 - Acute cystitis with hematuria Instructions: ED UTI Cystitis Male Prescriptions: Cefuroxime Axetil [Cefuroxime] 500 mg PO BID 10 Days #20 tablet Comments: Thank you for trusting us with your care. As we had discussed I think would benefit from a CT scan you opted to get this done outpatient with your primary care provider. I sent a prescription of cefuroxime and antibiotic that you will taking twice a day for the next 10 days for your urinary tract infection. We have sent your urine to the lab for culture as it will take 2 to 3 days for it to grow we will call you if we need to change antibiotics. Please help with your primary care provider and get further workup done as soon as possible please come back to the ER if you have been taking the antibiotics for total of 48 hours and have no improvement of symptoms or pain Or have any other worsening symptoms or concerns. Discharge Date/Time: 05/25/24 12:08
[2024-05-25 12:15] VITALS: BP 134/84
[2024-05-25 20:47] LABS: CHLAMYDIA TRACHOMATIS DNA NEGATIVE (NEGATIVE); NEISSERIA GONORRHOEAE DNA NEGATIVE (NEGATIVE); TRICHOMONAS VAGINALIS DNA NEGATIVE (NEGATIVE)
== END 2024-05-25 12:08 | disposition home or self-care (01) ==
LOC: ED 10:32
DX: N30.01 Acute cystitis with hematuria (principal); I10 Essential (primary) hypertension
CPT/HCPCS: 81001; 81003; 87086; 87181; 87491; 87591; 87661; 99282; 99284